=== PATIENT | male | born 1945 | race Caucasian/White ===

== ENCOUNTER 2018-05-09 01:04 | Outpatient (CLI) | payer MEDICARE, SELFPAY ==
[2018-05-09 11:14] LABS: HCT 48.4 % (40.0-50.0); HGB 15.8 g/dL (13.5-17.5); Mean Corp. HGB Concentration 32.6 g/dL (32.0-36.0); Mean Corpuscular Hemoglobin 27.3 pg (27.0-33.0); Mean Corpuscular Volume 83.6 fL (80-95); Mean Platelet Volume 13.1 fL (8.0-11.0); Platelet Count 130 x1000/uL (130-400); RBC 5.79 m/cumm (4.50-6.00); RBC Distribution Width 17.1 % (11.8-14.1); White Blood Cell Count 7.98 k/cumm (4.4-10.8)
[2018-05-09 12:07] LABS: Ferritin 22 ng/mL (8-388)
== END 2018-05-09 01:24 ==
PROVIDERS: PCP Family Medicine; Visit Provider Family Medicine
DX: D45 Polycythemia vera (principal)
CPT/HCPCS: 36415; 85027; 82728

== ENCOUNTER 2019-05-16 11:57 | Emergency (ER) | payer MEDICARE, SELFPAY ==
[2019-05-16 12:01] VITALS: BP 168/129; PULSE 76; RESP 16; TEMP 36.6; O2SAT 99
--- NOTE | 2019-05-16 12:17 | DI.US_ITS ---
EXAM: US LOWER EXTREMITY VENOUS LT CLINICAL HISTORY: L leg pain,swelling, r/o dvt. TECHNIQUE: Left lower extremity venous ultrasound performed using grayscale, color-flow, and spectra l Doppler analysis. COMPARISON: There are no priors for comparison. FINDINGS: The left common femoral, femoral and popliteal veins demonstrate normal compressibility, augmentation , and color Doppler. The posterior tibial vein is patent. The soft tissues are unremarkable. IMPRESSION: Negative for DVT.
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
[2019-05-16] MEDS: Ketorolac 60 MG/2 ML VIAL IM (12:28)
[2019-05-16] MEDS: predniSONE 20 MG TAB 60 MG PO (12:28)
--- NOTE | 2019-05-16 13:19 | NUR.NOTE ---
pt asissted with getting dressed pt states improvment in pain Nursing Note:
[2019-05-16 13:20] VITALS: BP 154/92; PULSE 76; RESP 16; TEMP 36.5; O2SAT 99
[2019-05-16] MEDS: oxyCODONE 5 MG TAB 15 MG PO (13:25)
== END 2019-05-16 13:27 | disposition home or self-care (01) ==
PROVIDERS: Emergency Provider Physician Assistant; PCP Family Medicine
DX: M54.32 Sciatica, left side (principal); G83.9 Paralytic syndrome, unspecified
CPT/HCPCS: 96372; 99284; 93971; J1885; J7512

== ENCOUNTER 2020-03-25 02:25 | Outpatient (CLI) | payer MEDICARE, SELFPAY ==
[2020-03-25 13:07] LABS: HCT 43.5 % (40.0-50.0); HGB 13.5 g/dL (13.5-17.5); MCH 24.5 pg (27.0-33.0); MCV 79.1 fL (80-95); RDW 16.3 % (11.8-14.1); RDW-SD 46.5 fL; WBC 7.95 10^3/uL (4.4-10.8)
[2020-03-25 13:31] LABS: Platelet Count 128 10^3/uL (130-400)
[2020-03-25 14:05] LABS: ALT 39 U/L (16-63); AST 39 U/L (15-37); Albumin 3.4 g/dL (3.4-5.0); Alkaline Phosphatase 100 U/L (46-116); Anion Gap 11.3 mmol/L (3-11); BUN 20 mg/dL (7-18); Bilirubin, Total 0.7 mg/dL (0.2-1.0); CO2 23.7 mmol/L (21.0-32.0); CREATININE 1.02 mg/dL (0.70-1.30); Calcium 8.7 mg/dL (8.5-10.1); Calculated LDL 98 mg/dL (<100); Chloride 105 mmol/L (98-107); Cholesterol 149 mg/dL (<200); Glucose 116 mg/dL (74-106); HDL Cholesterol 36 mg/dL (40-60); Potassium 4.4 mmol/L (3.5-5.1); Sodium 140 mmol/L (136-145); Total Protein 7.3 g/dL (6.4-8.2); Triglyceride 79 mg/dL (<150)
[2020-03-25 22:11] LABS: PSA, Diagnostic 0.8 ng/mL (0.0-6.5)
== END 2020-03-25 02:45 ==
PROVIDERS: PCP Nurse Practitioner; Visit Provider Family Medicine
DX: D64.9 Anemia, unspecified (principal); E03.9 Hypothyroidism, unspecified; C61 Malignant neoplasm of prostate
CPT/HCPCS: 36415; 80053; 80061; 85027; 84153

== ENCOUNTER 2021-02-18 04:18 | Outpatient (CLI) | payer MEDICARE, SELFPAY ==
[2021-02-18 13:14] LABS: HCT 46.7 % (40.0-50.0); HGB 14.7 g/dL (13.5-17.5); MCH 25.6 pg (27.0-33.0); MCHC 31.5 % (32.0-36.0); MCV 81.4 fL (80-95); Platelet Count 126 10^3/uL (130-400); RBC 5.74 10^6/uL (4.36-5.78); RDW 17.4 % (11.8-14.1); RDW-SD 50.2 fL; WBC 6.31 10^3/uL (4.4-10.8)
[2021-02-18 13:37] LABS: Hemoglobin A1C 5.7 % (<5.7)
[2021-02-18 14:32] LABS: TSH 0.13 uIU/mL (0.36-3.74)
== END 2021-02-18 04:19 | disposition home or self-care (01) ==
LOC: LBO 04:18
PROVIDERS: PCP Nurse Practitioner; Visit Provider Nurse Practitioner
DX: R73.09 Other abnormal glucose (principal); F32.9 Major depressive disorder, single episode, unspecified; S06.9X5D Unspecified intracranial injury with loss of consciousness greater than 24 hours with return to pre-existing conscious level, subsequent encounter
CPT/HCPCS: 36415; 85027; 83036; 84443

== ENCOUNTER 2021-12-09 06:01 | Outpatient (CLI) | payer OTHER, SELFPAY | END 2021-12-09 06:02 | disposition home or self-care (01) | LOC: LBO 06:01 | PROVIDERS: PCP Nurse Practitioner; Visit Provider Nurse Practitioner ==

== ENCOUNTER 2022-01-19 03:30 | Outpatient (CLI) | payer OTHER, SELFPAY | END 2022-01-19 03:31 | disposition home or self-care (01) | PROVIDERS: PCP Nurse Practitioner; Visit Provider Nurse Practitioner ==

== ENCOUNTER 2022-01-26 13:25 | Outpatient (CLI) | payer OTHER, SELFPAY ==
[2022-01-26 12:07] LABS: HCT 42.8 % (40.0-50.0); HGB 13.5 g/dL (13.5-17.5); MCH 26.1 pg (27.0-33.0); MCHC 31.5 % (32.0-36.0); MCV 83 fL (80-95); MPV 12.5 fL (8.0-11.0); Platelet Count 125 10^3/uL (130-400); RBC 5.17 10^6/uL (4.36-5.78); RDW 16.3 % (11.8-14.1); RDW-SD 48.8 fL; WBC 5.99 10^3/uL (4.4-10.8)
[2022-01-26 13:03] LABS: TSH 0.24 uIU/mL (0.36-3.74)
== END 2022-01-26 13:26 | disposition home or self-care (01) ==
LOC: LBO 13:25
PROVIDERS: PCP Nurse Practitioner; Visit Provider Urology
DX: C61 Malignant neoplasm of prostate (principal); E03.9 Hypothyroidism, unspecified; D45 Polycythemia vera
CPT/HCPCS: 36415; 85027; 84153; 84443

== ENCOUNTER 2022-02-23 03:33 | Outpatient (CLI) | payer OTHER, SELFPAY ==
[2022-02-23 11:16] LABS: HCT 40.9 % (40.0-50.0); HGB 12.8 g/dL (13.5-17.5); MCH 25.9 pg (27.0-33.0); MCHC 31.3 % (32.0-36.0); MCV 83 fL (80-95); MPV 12.8 fL (8.0-11.0); Platelet Count 129 10^3/uL (130-400); RBC 4.95 10^6/uL (4.36-5.78); RDW 16.1 % (11.8-14.1); RDW-SD 48.3 fL; WBC 5.51 10^3/uL (4.4-10.8)
[2022-02-23 11:49] LABS: Hemoglobin A1C 5.6 % (<5.7)
== END 2022-02-23 03:34 | disposition home or self-care (01) ==
LOC: LBO 03:33
PROVIDERS: PCP Nurse Practitioner; Visit Provider Nurse Practitioner
DX: D45 Polycythemia vera (principal); R73.03 Prediabetes
CPT/HCPCS: 36415; 85027; 83036

== ENCOUNTER 2023-02-19 12:42 | Outpatient (CLI) | payer MEDICARE, SELFPAY ==
[2023-02-19 10:31] LABS: HCT 46.3 % (40.0-50.0); HGB 15.3 g/dL (13.5-17.5); MCH 29.4 pg (27.0-33.0); MCV 89 fL (80-95); MPV 12.2 fL (8.0-11.0); RBC 5.21 10^6/uL (4.36-5.78); RDW 15.1 % (11.8-14.1); RDW-SD 49.7 fL; WBC 5.44 10^3/uL (4.4-10.8)
[2023-02-19 10:42] LABS: Hemoglobin A1C 5.4 % (<5.7)
[2023-02-19 10:45] LABS: Platelet Count 96 10^3/uL (130-400)
[2023-02-19 11:03] LABS: Anion Gap 9.4 mmol/L (3-11); BUN 26 mg/dL (7-18); CO2 25.6 mmol/L (21.0-32.0); CREATININE 1.4 mg/dL (0.70-1.30); Calcium 8.8 mg/dL (8.5-10.1); Calculated LDL 147 mg/dL (<100); Chloride 103 mmol/L (98-107); Cholesterol 222 mg/dL (<200); Estimated GFR 51.77 (mL/min/1.73m2); Glucose 103 mg/dL (74-106); HDL Cholesterol 52 mg/dL (40-60); Potassium 4.1 mmol/L (3.5-5.1); Sodium 138 mmol/L (136-145); Triglyceride 116 mg/dL (<150)
[2023-02-19 11:27] LABS: TSH (W/Ref FT4) 79.63 uIU/mL (0.36-3.74)
[2023-02-19 11:28] LABS: FREE T4 0.11 ng/dL (0.76-1.46)
== END 2023-02-19 12:43 | disposition home or self-care (01) ==
LOC: LBO 12:42
PROVIDERS: PCP Nurse Practitioner Family; Visit Provider Nurse Practitioner Family
DX: E03.9 Hypothyroidism, unspecified (principal); D45 Polycythemia vera; R79.89 Other specified abnormal findings of blood chemistry; R73.09 Other abnormal glucose; F32.89 Other specified depressive episodes; K21.9 Gastro-esophageal reflux disease without esophagitis; G83.89 Other specified paralytic syndromes; G47.8 Other sleep disorders; Z85.46 Personal history of malignant neoplasm of prostate
CPT/HCPCS: 36415; 80048; 80061; 85027; 83036; 84439; 84443

== ENCOUNTER 2023-03-17 08:49 | Inpatient (IN) | payer MEDICARE, SELFPAY ==
[2023-03-17] VITALS (28 sets, daily range): BP systolic 109–152; BP diastolic 61–79; PULSE 63–92; RESP 18–20; TEMP 36.8–37.5; O2SAT 91–96
--- OUTSIDE RECORDS SUMMARY | 2023-03-17 08:58 | XMS_ITS | Continuity of Care Document ---
Author Name Unknown Organization [facility] Address [address] [place], [place] [id number] Care Team Providers [place] [employer] Name Role Phone Yfn SIGALA, Elena Primary Care Physician Encounter German LUCAS [id number] Date(s): 12/28/22 - 12/28/22 [facility] [address] [phone] [place] [address] Discharge Disposition: Home or Self Care Attending Physician: Elena Coulter NP Referring Physician: Elena Cuolter NP Allergies, Adverse Reactions, Alerts Substance Reaction Severity Status Fish Active Assessment and Plan Future Appointments Appointment Date:01/27/2023 02:00:00 PM Scheduled Provider:Elena Coulter NP Location:[facility] Appointment Type: Established Patient Medications acetaminophen-HYDROcodone 325 mg-10 mg oral tablet 1 tab, ORAL, Q4H, PRN PRN for pain, # 7 tab, 0 Refill(s) Start Date: 12/20/14 Status: Ordered acetaminophen-HYDROcodone 325 mg-5 mg 1 tab, ORAL, Q6H, PRN PRN as needed for pain, # 12 tab, 0 Refill(s) Start Date: 12/19/14 Status: Ordered losartan 50 mg oral tablet 50 mg = 1 tab, ORAL, QDay, # 90 tab, 0 Refill(s), [facility]acy: [facility], 165.1, 09/10/22 14:21:00 EST, Height/Length Measured, cm, 80.91 Start Date: 09/10/22 Status: Ordered meclizine 12.5 mg oral tablet 12.5 mg = 1 tab, ORAL, BID, PRN PRN for dizziness, # 30 tab, 0 Refill(s), Pharmacy: [facility], 165.1, 10/20/22 13:40:00 EST, Height/Length Measured, cm, 81.36 Start Date: 10/20/22 Stop Date: 10/20/23 Status: Ordered Mobic 15 mg oral tablet 15 mg = 1 tab, ORAL, QDay, # 14 tab, 0 Refill(s), 81.8 Start Date: 11/30/22 Stop Date: 12/14/22 Status: Ordered Neurontin 300 mg oral capsule 300 mg = 1 cap, ORAL, TID, start with one on day one, then bid day two, then tid dosing, # 90 cap, 1 Refill(s), 81.8 Start Date: 11/30/22 Status: Ordered omeprazole 40 mg oral delayed release capsule 40 mg = 1 cap, ORAL, QDay, # 30 cap, 0 Refill(s) Start Date: 12/19/14 Status: Ordered oxybutynin 15 mg/24 hr oral tablet, extended release 15 mg = 1 tab, ORAL, QDay, # 30 tab, 0 Refill(s) Start Date: 12/19/14 Status: Ordered Problem List Condition Confirmation Course Effective Dates Status Health [facility] Informant BPH (benign prostatic hyperplasia) Confirmed Active Acid reflux Confirmed Active Hypothyroid Confirmed Active Prostate cancer Confirmed Active Migraines Confirmed Active Polycythemia vera Confirmed Active Hemiparesis, right Confirmed 1948 Active Procedures Procedure Date Related Diagnosis Body Site Status Prostate specific antigen Completed Results Radiology Reports * Exam Date Time Procedure Performing Provider Status 12/28/22 5:01 PM US Head/Neck, Soft Tissue Mary Min RDMS; Modified Notes: (US Head/Neck, Soft Tissue) Reason For Exam: Abnormal thyroid levels Read Procedure: US Head/Neck, Soft Tissue Indication: Abnormal thyroid levels Comparison: No prior films available for comparison. Technique: Ultrasound examination of the thyroid gland was performed utilizing multiple lauren-scale and color flow images. Findings The thyroid gland is somewhat small in size without nodules. The right lobe measures 3.8 x 1.4 x 0.8 cm. The left lobe measures 3.4 x 1.3 x 1 cm. the isthmus measures 1 mm. IMPRESSION: The thyroid gland is somewhat small in size without nodules. Dictated: 12.28.2022 5:04 pm Dictated By: Susie Garcia DO Electronic Signature: 12.28.2022 5:04 pm Final Report Signed By: Susie Garcia DO Social History Social History Type Response Smoking Status Former smoker; Info source: Patient entered on: 11/30/22 Sex Male US Head and neck soft tissue * Susie Garcia DO: PERFORM, VERIFY, VERIFY Event Display: Read Authored Date: [id number] Procedure: US Head/Neck, Soft Tissue Indication: Abnormal thyroid levels Comparison: No prior films available for comparison. Technique: Ultrasound examination of the thyroid gland was performed utilizing multiple lauren-scale and color flow images. Findings The thyroid gland is somewhat small in size without nodules. The right lobe measures 3.8 x 1.4 x 0.8 cm. The left lobe measures 3.4 x 1.3 x 1 cm. the isthmus measures 1 mm. IMPRESSION: The thyroid gland is somewhat small in size without nodules. Dictated: 12.28.2022 5:04 pm Dictated By: Susie Garcia DO Electronic Signature: 12.28.2022 5:04 pm Final Report Signed By: Susie Garcia DO Patient Care team information Personnel Name: Elena Coulter NP Address: Address: [facility] - [address], [address]
--- NOTE | 2023-03-17 10:30 | DI.RAD_ITS ---
Exam(s) XR HIP RT COMPLETE AP PELVIS EXAM: XR HIP RT COMPLETE AP PELVIS CLINICAL HISTORY: deformity. TECHNIQUE: 2D digital imaging was performed. COMPARISON: No exams were available for comparison FINDINGS: 3 views There is a subcapital fracture of the right hip with moderate displacement. No other fractures ident ified. No obvious osseous lesions.. IMPRESSION: Right femoral neck fracture with some displacement DATA REPOSITORY: RADIATION DOSE DELIVERED:
--- NOTE | 2023-03-17 10:30 | DI.RAD_ITS ---
Exam(s) XR CHEST 1V IN DI DEPT EXAM: XR CHEST 1V IN DI DEPT CLINICAL HISTORY: fall, injury. TECHNIQUE: 2D digital imaging was performed. COMPARISON: CR CHEST 2 VIEWS PA,LAT from 04/13/2013 FINDINGS: Single AP portable view. Heart size is upper normal. The mediastinum is not widened. Left lung is clear. However, there is right parahilar infiltrate evident. No pleural effusions. No pulmonary edema. IMPRESSION: Right upper lobe parahilar infiltrate. Close follow-up to resolution recommended. No obvious pleural effusions. DATA REPOSITORY: RADIATION DOSE DELIVERED:
[2023-03-17] MEDS: oxyCODONE 5 MG TAB PO (10:43)
[2023-03-17 10:56] LABS: Abs Immature Grans 0.06 10^3/uL (0.0-0.06); Absolute Basophil Count 0.04 10^3/uL (0.0-0.2); Absolute Eosinophil Count 0.12 10^3/uL (0.0-0.7); Absolute Lymphocyte Count 1.14 10^3/uL (1.2-3.4); Absolute Monocyte Count 0.93 10^3/uL (0.1-0.8); Absolute Neutrophil Count 7.36 10^3/uL (1.2-6.7); Basophils % 0.4; Eosinophils % 1.2; HGB 14.8 g/dL (13.5-17.5); Immature Grans % 0.6; Lymphocytes % 11.8; MCH 30.3 pg (27.0-33.0); MCHC 33.6 % (32.0-36.0); MCV 90 fL (80-95); Monocytes % 9.6; Neutrophils % 76.4; RBC 4.89 10^6/uL (4.36-5.78); RDW-SD 53.1 fL; WBC 9.65 10^3/uL (4.4-10.8)
--- NOTE | 2023-03-17 11:00 | DI.RAD_ITS ---
Exam(s) XR FEMUR RT EXAM: XR FEMUR RT CLINICAL HISTORY: hip fra. TECHNIQUE: 2D digital imaging was performed. COMPARISON: No exams were available for comparison FINDINGS: Five views. There is moderately displaced subcapital fracture of the right femoral neck. There are no other frac tures lower down in the femur. No osseous lesions. Bone density is age-appropriate. IMPRESSION: Right femur fracture is confined to the femoral neck. DATA REPOSITORY: RADIATION DOSE DELIVERED:
[2023-03-17 11:09] LABS: ALT 58 U/L (16-63); AST 59 U/L (15-37); Albumin 3.2 g/dL (3.4-5.0); Alkaline Phosphatase 154 U/L (46-116); Anion Gap 8.9 mmol/L (3-11); BUN 25 mg/dL (7-18); Bilirubin, Total 1.6 mg/dL (0.2-1.0); CO2 26.1 mmol/L (21.0-32.0); CREATININE 1.3 mg/dL (0.70-1.30); Calcium 8.6 mg/dL (8.5-10.1); Chloride 103 mmol/L (98-107); Estimated GFR 56.58 (mL/min/1.73m2); Glucose 113 mg/dL (74-106); Potassium 3.8 mmol/L (3.5-5.1); Sodium 138 mmol/L (136-145)
[2023-03-17 11:17] LABS: Diff Comment PLT Morph Reviewed; RBC Morphology Normal
[2023-03-17 11:19] LABS: Platelet Count 101 10^3/uL (130-400)
[2023-03-17 12:15] LABS: Source Nasal/Nares
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
[2023-03-17 12:56] LABS: COVID-19 PCR Negative (Negative)
[2023-03-17] MEDS: fentaNYL 100 MCG/2 ML VIAL 50 MCG IVP (14:00)
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
[2023-03-17 21:25] LABS: Lab Add On Test DONE
[2023-03-17 21:58] LABS: TSH 52.49 uIU/mL (0.36-3.74)
[2023-03-17] MEDS: Ketorolac 15 MG/ML VIAL IVP (23:28)
[2023-03-18] VITALS (15 sets, daily range): BP systolic 94–150; BP diastolic 49–87; PULSE 65–81; RESP 14–22; TEMP 35.6–37.2; O2SAT 94–97; BMI 29.9
[2023-03-18 03:32] LABS: Bilirubin Small (Negative); Blood Moderate (Negative); Glucose Negative (Negative); Ketones Trace mg/dL (Negative); Leukocyte Esterase Negative (Negative); Nitrite Negative (Negative); Specific Gravity 1.025 (1.005-1.025); pH 5.5 (5-8)
[2023-03-18 04:12] LABS: Clarity Sl Cloudy (Clear)
[2023-03-18 04:21] LABS: Epithelial Cells Negative HPF (Negative); Other Cells Negative (Negative); WBC 0-2 HPF (0-5)
[2023-03-18 04:22] LABS: Bacteria Rare HPF (Negative); C & S Indicated? No; Crystals Negative HPF (Negative); Mucus Trace (Negative)
[2023-03-18] MEDS: Levothyroxine 100 MCG TAB PO (05:14)
[2023-03-18 06:48] LABS: Abs Immature Grans 0.04 10^3/uL (0.0-0.06); Absolute Basophil Count 0.06 10^3/uL (0.0-0.2); Absolute Eosinophil Count 0.42 10^3/uL (0.0-0.7); Absolute Lymphocyte Count 1.73 10^3/uL (1.2-3.4); Absolute Monocyte Count 0.98 10^3/uL (0.1-0.8); Absolute Neutrophil Count 6.03 10^3/uL (1.2-6.7); Basophils % 0.6; Eosinophils % 4.5; HCT 41.9 % (40.0-50.0); HGB 14.2 g/dL (13.5-17.5); Immature Grans % 0.4; Lymphocytes % 18.7; MCH 30.5 pg (27.0-33.0); MCHC 33.9 % (32.0-36.0); MCV 90 fL (80-95); Monocytes % 10.6; Neutrophils % 65.2; RBC 4.65 10^6/uL (4.36-5.78); RDW 16.3 % (11.8-14.1); RDW-SD 54.2 fL; WBC 9.26 10^3/uL (4.4-10.8)
[2023-03-18 07:16] LABS: INR 1.1 (0.9-1.1); Prothrombin Time 11.6 sec (9.3-11.0)
[2023-03-18 07:27] LABS: ALT 49 U/L (16-63); AST 54 U/L (15-37); Albumin 2.9 g/dL (3.4-5.0); Alkaline Phosphatase 140 U/L (46-116); Anion Gap 8.8 mmol/L (3-11); BUN 25 mg/dL (7-18); Bilirubin, Total 1.6 mg/dL (0.2-1.0); CO2 25.2 mmol/L (21.0-32.0); CREATININE 1.2 mg/dL (0.70-1.30); Calcium 8.5 mg/dL (8.5-10.1); Chloride 102 mmol/L (98-107); Estimated GFR 62.29 (mL/min/1.73m2); Glucose 117 mg/dL (74-106); Magnesium 1.9 mg/dL (1.8-2.4); Sodium 136 mmol/L (136-145); Total Protein 7.5 g/dL (6.4-8.2)
[2023-03-18 07:30] LABS: Diff Comment Diff Reviewed; Platelet Count 91 10^3/uL (130-400); RBC Morphology Normal
[2023-03-18] MEDS: Cholecalciferol (Vitamin D3) 1,000 UNIT TAB 4000 UNITS PO (08:03)
[2023-03-18] MEDS: Gabapentin 300 MG CAP PO ×2 (08:04→20:49)
[2023-03-18] MEDS: Sertraline 50 MG TAB PO (08:05)
[2023-03-18] MEDS: Oxybutynin-CR 5 MG TABCR 10 MG PO (08:05)
[2023-03-18] MEDS: Losartan 50 MG TAB PO (08:05)
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
--- NOTE | 2023-03-18 08:52 | ANES.PREOP_ITS ---
General Info Date of Service Date Performed: 03/18/23 Height: 5 ft 5 in Weight: 81.6 kg Body Mass Index (BMI): 29.9 Surgical Procedure: Operation Date: 03/18/23 17:25 Proposed Procedure Side Surgeon p Hip Uni/Bipolar Right Presley Santacruz MD Meds Allergies and Home Medications Allergies Allergy/AdvReac Type Severity Reaction Status Date / Time No Known Allergies Allergy Verified 03/17/23 08:55 Home Medication Medication Instructions Recorded acetaminophen 500 mg tablet 1,000 mg PO Q6H PRN #60 tab-caps 04/07/17 ketoconazole 2 % topical cream 1 applic topical BID #30 grams 04/25/19 loratadine 10 mg tablet 15 mg PO DAILY #135 tab-caps 02/12/22 sertraline 50 mg tablet 50 mg PO DAILY #90 tab-caps 05/22/22 acetaminophen 300 mg-codeine 30 mg 1 tab PO Q4H PRN 02/18/23 tablet gabapentin 300 mg capsule 300 mg PO TID #90 caps 02/18/23 losartan 50 mg tablet 50 mg PO DAILY 02/18/23 meclizine 12.5 mg tablet 12.5 mg PO TID PRN 02/18/23 omeprazole 40 mg capsule,delayed 40 mg PO BID #180 caps 02/18/23 release oxybutynin chloride 10 mg 10 mg PO DAILY #90 tab-caps 02/18/23 tablet,extended release 24 hr tadalafil 20 mg tablet (Cialis) 20 mg PO DAILY PRN sexual activity 02/18/23 #30 tabs cholecalciferol (vitamin D3) 50 100 mcg PO DAILY 03/04/23 mcg (2,000 unit) capsule levothyroxine 100 mcg tablet 100 mcg PO DAILY #90 tabs 03/04/23 loratadine 10 mg tablet (Allergy 10 mg PO DAILY PRN 03/04/23 Relief (loratadine)) Current Visit Medications: Current Medications Generic Name Dose Route Start Last Admin Trade Name Freq PRN Reason Stop Dose Admin Acetaminophen 0 mg 03/17/23 12:41 Acetaminophen 325 Mg Tab PO Q4H PRN PRN Cholecalciferol 4,000 units 03/18/23 08:30 03/18/23 08:03 Cholecalciferol (Vitamin D3) 1,000 Unit Tab PO 4,000 units DAILY SHON Administration Gabapentin 300 mg 03/18/23 08:30 03/18/23 08:04 Gabapentin 300 Mg Cap PO 300 mg TID SHON Administration Hydromorphone HCl 0.5 mg 03/17/23 20:15 Hydromorphone 2 Mg/Ml Syr IVP Q4H PRN PRN Ringer's Solution 1,000 mls @ 75 mls/hr 03/18/23 08:00 IV 03/18/23 21:19 INFUSION [facility] Ketorolac Tromethamine 15 mg 03/17/23 20:19 03/17/23 23:28 Ketorolac 15 Mg/Ml Vial IVP 03/22/23 20:18 15 mg Q6H PRN PRN Administration Levothyroxine Sodium 100 mcg 03/18/23 06:00 03/18/23 05:14 Levothyroxine 100 Mcg Tab PO 100 mcg 0600 [facility] Administration Loratadine 10 mg 03/17/23 20:16 Loratidine 10 Mg Tab PO DAILY PRN PRN Losartan Potassium 50 mg 03/18/23 08:30 03/18/23 08:05 Losartan 50 Mg Tab PO 50 mg DAILY [facility] Administration Ondansetron HCl 4 mg 03/17/23 20:15 Ondansetron 4 Mg/2 Ml Vial IVP Q4H PRN PRN Oxybutynin Chloride 10 mg 03/18/23 08:30 03/18/23 08:05 Oxybutynin-Cr 5 Mg Tabcr PO 10 mg DAILY [facility] Administration Polyethylene Glycol 17 gm 03/17/23 12:41 Polyethylene Glycol 3350 17 Gm Packet PO DAILY PRN PRN Constipation Sertraline HCl 50 mg 03/18/23 08:30 03/18/23 08:05 Sertraline 50 Mg Tab PO 50 mg DAILY [facility] Administration Zolpidem Tartrate 5 mg 03/17/23 21:36 Zolpidem 5 Mg Tab PO HS PRN MAY REPEAT X1 PRN PFSH Active Problems Active Problems: Problem Status Onset Code Discharge planning issues Z02.9 DVT prophylaxis Z29.9 Displaced fracture of right femoral neck 03/17/23 S72.001A Prediabetes R73.03 Sensorineural hearing loss, bilateral H90.3 Traumatic brain injury S06.9X9A Depressive disorder F32.9 Hypothyroidism E03.9 Gastroesophageal reflux disease K21.9 Polycythemia vera 04/13/13 D45 Prostate cancer 06/16/14 C61 Sleep disturbance, unspecified G47.9 Hearing loss H91.90 Paralysis G83.9 Medical History Medical History Anxiety (02/25/15) Chronic osteoarthritis (05/29/13) Family history of malignant neoplasm of prostate (01/23/13) Hepatomegaly History of prostate cancer Impotence (01/23/15) Left lumbar radiculopathy intermittent Migraine History of migraine headaches, Paresthesias of left thigh (04/13/13) Prostatitis (04/13/13) Smoker (01/24/09) quit 1989 Surgical History Surgical History No significant past surgical history Tobacco Smoking/Tobacco Use Status: Former Tobacco Use Alcohol Alcohol Intake: current Alcohol intake frequency: a few times a month Substance Use Substance use: Never Substance use type: does not use Vital Signs and Lab Results Vital Signs Most Recent Vital Signs in EMR: Most Recent Vital Signs Temp Pulse Resp BP Pulse Ox 37.0 C 80 18 147/87 H 97 03/18/23 07:25 03/18/23 07:25 03/18/23 07:25 03/18/23 07:25 03/18/23 07:25 Lab Results 03/18/23 06:10 03/18/23 06:10 Blood Type / Crossmatch: Patient ABO/Rh O Positive 03/17/23 Antibody Screen NEGATIVE 03/17/23 Complete Blood Count: White Blood Count 9.26 10^3/uL (4.4-10.8) 03/18/23 06:10 Red Blood Count 4.65 10^6/uL (4.36-5.78) 03/18/23 06:10 Hemoglobin 14.2 g/dL (13.5-17.5) 03/18/23 06:10 Hematocrit 41.9 % (40.0-50.0) 03/18/23 06:10 Platelet Count 91 10^3/uL (130-400) L 03/18/23 06:10 Complete Metabolic Panel: Sodium 136 mmol/L (136-145) 03/18/23 06:10 Potassium 4.0 mmol/L (3.5-5.1) 03/18/23 06:10 Chloride 102 mmol/L (98-107) 03/18/23 06:10 Carbon Dioxide 25.2 mmol/L (21.0-32.0) 03/18/23 06:10 BUN 25 mg/dL (7-18) H 03/18/23 06:10 Creatinine 1.2 mg/dL (0.70-1.30) 03/18/23 06:10 Est GFR (CKD-EPI 2020) 62.29 (mL/min/1.73m2) 03/18/23 06:10 Magnesium 1.9 mg/dL (1.8-2.4) 03/18/23 06:10 Calcium 8.5 mg/dL (8.5-10.1) 03/18/23 06:10 Albumin 2.9 g/dL (3.4-5.0) L 03/18/23 06:10 Glucose 117 mg/dL (74-106) H 03/18/23 06:10 Hemoglobin A1c 5.4 % (<5.7) 02/19/23 10:20 Liver Function Panel: Alanine Aminotransferase (ALT/SGPT) 49 U/L (16-63) 03/18/23 06: 10 Aspartate Amino Transf (AST/SGOT) 54 U/L (15-37) H 03/18/23 06: 10 Coagulation Panel: INR International Normalized Ratio 1.1 (0.9-1.1) 03/18/23 06:1 0 Prothrombin Time 11.6 sec (9.3-11.0) H 03/18/23 06:10 Cardiac Panel: No Data to Display Arterial Blood Gas: No Data to Display Venous Blood Gas: No Data to Display Pancreas Panel: No Data to Display Thyroid Panel: 2 Thyroid Stimulating Hormone (TSH) 52.49 uIU/mL (0.36-3.74) H 03/17/23 10:44 Infectious Disease: Coronavirus (COVID-19)(PCR) Negative (Negative) 03/17/23 12:11 Coronavirus 2019 Source Nasal/Nares 03/17/23 12:11 Blood Cultures: No Data to Display Toxicology Panel: No Data to Display Anesthesia Assessment and Plan Anesthesia History Personal History: No History of Anesthesia Complications Family History: No Family History of Anesthesia Complications Exercise Tolerance Exercise Tolerance: Metabolic Equivalents>4 Pertinent Negatives Pertinent Negatives: No Symptoms of GERD, No Major Cardiovascular Symptoms or Complaints and No Major Pulmonary Symptoms or Complaints Cardiac & Pulmonary Exam Cardiac Exam: Normal S1/S2 Heart Sounds Pulmonary Exam: Clear Bilateral Breath Sounds Implantable Cardiac Device Does patient have a Pacemaker or an ICD?: No Airway Exam Known Difficult Airway: No Mallampati Class: 1 Mouth Opening: Normal (> 3cm) Thyromental Distance: Greater than 3 cm Facial Hair: Full Joyner Neck Range of Motion: Full ROM Neck Circumference: Normal Teeth Condition: Edentulous ASA Classification ASA Score: ASA 3 Emergency Case?: No NPO Status NPO Status: NPO Clears >2 hours, Solids >8 hours Anesthesia Plan Resuscitation Status: Full Code Anesthesia Technique: General Anesthesia Airway Planned: Endotracheal Tube Monitors Used: Standard Monitors Preoperative Comments:: TSH levels are coming down since started on replacement therapy, and platelet count trended and stable. Reviewed case with hospitalist.
[2023-03-18] MEDS: Lactated Ringers 1,000 ML 75 ML IV ×2 (09:46→17:59)
--- NOTE | 2023-03-18 13:46 | CHAPLAIN ---
Steve was resting in bed when I visited. His son was with him. They are waiting to hear if Steve will have surgery on his hip today or not. He hasn't eaten while waiting for surgery, so he hopes to learn soon about his surgery schedule, so he can possible eat if the surgery isn't until tomorrow. I explained my role and offered support.
[2023-03-18] MEDS: HYDROmorphone 2 MG/ML SYR 0.5 MG IVP (15:49)
--- NOTE | 2023-03-18 16:29 | W.PM.OP ---
Date of service: 03/18/23 Time of Service: 16:29 Operative Note Operative Note DATE OF PROCEDURE: 03/18/23 PRE-OP DIAGNOSIS: Right displaced femoral neck fracture PROCEDURE: Right posterior hip hemiarthroplasty SURGEON: Presley Santacruz [employer] ARCHITECT: Charlee Quinonez ANESTHESIA TYPE: Local By Surgeon and General LMA/ETT Refer to Anesthesia Record ESTIMATED BLOOD LOSS: 75 COMPLICATIONS: None Patient was transported to: PACU Patient's condition: stable Implants: DePuy Corail press fit femoral stem size 10 standard with 46 mm bipolar head +12 mm length Procedure Description: In the operating room, general anesthesia was induced. The patient was transferred and positioned laterally on the operating room table. All bony prominences were well-padded. Preoperative antibiotics were administered as well as 1 g of TXA. The right hip was prepped and draped in the usual sterile fashion. The correct patient, procedure, and side of the procedure were all verified prior to incision. The posterior lateral approach to left hip was utilized. 30 cc of 0.5% bupivacaine containing epinephrine was infiltrated about the incision. Deeply, care was taken to protect the sciatic nerve. The short external rotators and capsule were reflected off the femoral neck and tagged for retraction and later repair. The femoral neck fracture was cut to an appropriate length and to match the desired implant. The femoral head was removed from the acetabulum and measured on the back table. All bony debris was removed from the wound. The proximal femoral canal was sequentially opened and broached with the appropriate lateralization and anteversion until there was a relatively solid fit. Trial reduction with a standard offset +1 mm length bipolar head was too loose and unstable so the trial head length was built up to +12 mm, which demonstrated good suction seal and stability throughout physiologic range of motion. The trial implants were removed. The femoral stem was then impacted to the appropriate depth. The final bipolar head was assembled and impacted onto the femoral trunnion then reduced into the acetabulum, and found to have excellent stability. The wound was copiously irrigated with Betadine and normal saline. 1 g of vancomycin powder was distributed mostly deep to the capsule with some superficial to the capsule about the wound. The short external rotators were repaired using SutureTape through bone tunnels in the greater trochanter. Distally, the IT band fascia was closed using #1 Vicryl in an interrupted fashion. Proximally, the gluteus darby muscle fascia was closed using 0 Vicryl in a running fashion. The superficial wound was irrigated with normal saline. Subcutaneous tissue was closed using 2-0 Monocryl in a buried interrupted fashion. Skin was closed using 3-0 Monocryl in a buried subcuticular buried fashion. Skin was sealed with skin glue. A silver impregnated bandage was applied over the wound. The patient awoke from anesthesia without complication and was transferred to the recovery room in a stable condition.
--- NOTE | 2023-03-18 16:30 | W.PM.PROGNOT ---
Date of Service Date of service: 03/18/23 Time of Service: 19:45 Assessment and Plan Assessment and plan (1) Displaced fracture of right femoral neck: Status: Acute Assessment and plan: 78-year-old male postop day #0 status post right hip hemiarthroplasty Complete 24 hours postoperative antibiotics Discontinue Hooks catheter postop day #1 Pain control-Multimodal Physical therapy ordered: Weightbearing as tolerated with assist device. Posterior hip precautions?avoid deep hip flexion (past 90 degrees) combined with any internal rotation and adduction for 6 weeks. May start chemical DVT prophylaxis tomorrow assuming hemodynamically stable and continue for 30 days postop Continue mechanical DVT prophylaxis with BLE SCDs and/or TIA hose Discharge when medically appropriate Follow-up with Dr. Santacruz outpatient [facility] in 2 to 3 weeks Appreciate medical management Objective Last Vital Signs Temp 99.0 F 03/18/23 15:31 Pulse 68 03/18/23 15:31 Resp 16 03/18/23 15:31 BP 138/82 03/18/23 15:31 Pulse Ox 94 03/18/23 15:31 Laboratory Results - last 24 hr 03/17/23 03/17/23 03/17/23 10:44 21:35 Unknown WBC RBC Hgb Hct MCV MCH MCHC RDW Plt Count MPV Immature Gran % Neutrophils % Lymphocytes % Monocytes % Eosinophils % Basophils % Nucleated RBC % Absolute Neutrophils Absolute Lymphocytes Absolute Monocytes Absolute Eosinophils Absolute Basophils RBC Morphology PT INR Sodium Potassium Chloride Carbon Dioxide Anion Gap BUN Creatinine Est GFR (CKD-EPI 2020) Glucose Calcium Magnesium Total Bilirubin AST ALT Alkaline Phosphatase Total Protein Albumin TSH 52.49 H Urine Color Urine Clarity Urine pH Ur Specific [place] Urine Protein Urine Ketones Urine Blood Urine Nitrite Urine Bilirubin Urine Urobilinogen Ur Leukocyte Esterase Urine RBC Urine WBC Ur Epithelial Cells Urine Crystals Urine Bacteria Urine Mucus Urine Other Ur Culture Indicated? Urine Glucose Add-On Test Request DONE Patient ABO/Rh O Positive Antibody Screen NEGATIVE 03/18/23 03/18/23 03/18/23 03:00 06:10 06:10 WBC 9.26 RBC 4.65 Hgb 14.2 Hct 41.9 MCV 90 MCH 30.5 MCHC 33.9 RDW 16.3 H Plt Count 91 L MPV 13.0 H Immature Gran % 0.4 Neutrophils % 65.2 Lymphocytes % 18.7 Monocytes % 10.6 Eosinophils % 4.5 Basophils % 0.6 Nucleated RBC % 0.0 Absolute Neutrophils 6.03 Absolute Lymphocytes 1.73 Absolute Monocytes 0.98 H Absolute Eosinophils 0.42 Absolute Basophils 0.06 RBC Morphology Normal PT INR Sodium 136 Potassium 4.0 Chloride 102 Carbon Dioxide 25.2 Anion Gap 8.8 BUN 25 H Creatinine 1.2 Est GFR (CKD-EPI 2020) 62.29 Glucose 117 H Calcium 8.5 Magnesium 1.9 Total Bilirubin 1.6 H AST 54 H ALT 49 Alkaline Phosphatase 140 H Total Protein 7.5 Albumin 2.9 L TSH Urine Color Dark Yellow Urine Clarity Sl Cloudy Urine pH 5.5 Ur Specific [place] 1.025 Urine Protein 30 H Urine Ketones Trace H Urine Blood Moderate H Urine Nitrite Negative Urine Bilirubin Small H Urine Urobilinogen 4.0 H Ur Leukocyte Esterase Negative Urine RBC 10-20 H Urine WBC 0-2 Ur Epithelial Cells Negative Urine Crystals Negative Urine Bacteria Rare Urine Mucus Trace Urine Other Negative Ur Culture Indicated? No Urine Glucose Negative Add-On Test Request Patient ABO/Rh Antibody Screen 03/18/23 06:10 WBC RBC Hgb Hct MCV MCH MCHC RDW Plt Count MPV Immature Gran % Neutrophils % Lymphocytes % Monocytes % Eosinophils % Basophils % Nucleated RBC % Absolute Neutrophils Absolute Lymphocytes Absolute Monocytes Absolute Eosinophils Absolute Basophils RBC Morphology PT 11.6 H INR 1.1 Sodium Potassium Chloride Carbon Dioxide Anion Gap BUN Creatinine Est GFR (CKD-EPI 2020) Glucose Calcium Magnesium Total Bilirubin AST ALT Alkaline Phosphatase Total Protein Albumin TSH Urine Color Urine Clarity Urine pH Ur Specific [place] Urine Protein Urine Ketones Urine Blood Urine Nitrite Urine Bilirubin Urine Urobilinogen Ur Leukocyte Esterase Urine RBC Urine WBC Ur Epithelial Cells Urine Crystals Urine Bacteria Urine Mucus Urine Other Ur Culture Indicated? Urine Glucose Add-On Test Request Patient ABO/Rh Antibody Screen Time Spent with Patient Time Spent with Patient: <25 minutes Time was spent: obtaining and/or reviewing separately [facility]
--- NOTE | 2023-03-18 16:47 | W.PM.PROGNOT ---
Date of Service Date of service: 03/18/23 Time of Service: 16:48 Assessment and Plan Assessment and plan (1) Displaced fracture of right femoral neck: Status: Acute Assessment and plan: Mechanical fall resulting in displaced right femoral neck fracture Ortho consulted - still in OR for right hip hemiarthroplasty at time of writing Reg diet postop, bedrest, multi-? modal pain control Acetaminophen, Ketorolac, hydromorphone for pain Indwelling urinary catheter (2) Hypothyroidism: Status: Active Assessment and plan: Stable, continue home med (3) Gastroesophageal reflux disease: Status: Active Assessment and plan: Stable, continue home med (4) Anxiety: Assessment and plan: Lorazepam PRN (5) DVT prophylaxis: Status: Acute Assessment and plan: Hold chemical DVT prophylaxis pending OR SCDs/TIA hoovere. (6) Discharge planning issues: Status: Acute Assessment and plan: Home v SNF Discussed with Dr Fox Subjective Subjective Patient reports: no new complaints, feels better and bowel movement; denies diarrhea, vomiting or fever Interval history since last seen: Patient NPO - to the OR this afternoon with ortho for repair of his hip Objective Last Vital Signs Temp 37.2 C 03/18/23 15:31 Pulse 68 03/18/23 15:31 Resp 16 03/18/23 15:31 BP 138/82 03/18/23 15:31 Pulse Ox 94 03/18/23 15:31 Laboratory Results - last 24 hr 03/17/23 03/17/23 03/17/23 10:44 21:35 Unknown WBC RBC Hgb Hct MCV MCH MCHC RDW Plt Count MPV Immature Gran % Neutrophils % Lymphocytes % Monocytes % Eosinophils % Basophils % Nucleated RBC % Absolute Neutrophils Absolute Lymphocytes Absolute Monocytes Absolute Eosinophils Absolute Basophils RBC Morphology PT INR Sodium Potassium Chloride Carbon Dioxide Anion Gap BUN Creatinine Est GFR (CKD-EPI 2020) Glucose Calcium Magnesium Total Bilirubin AST ALT Alkaline Phosphatase Total Protein Albumin TSH 52.49 H Urine Color Urine Clarity Urine pH Ur Specific [place] Urine Protein Urine Ketones Urine Blood Urine Nitrite Urine Bilirubin Urine Urobilinogen Ur Leukocyte Esterase Urine RBC Urine WBC Ur Epithelial Cells Urine Crystals Urine Bacteria Urine Mucus Urine Other Ur Culture Indicated? Urine Glucose Add-On Test Request DONE Patient ABO/Rh O Positive Antibody Screen NEGATIVE 03/18/23 03/18/23 03/18/23 03:00 06:10 06:10 WBC 9.26 RBC 4.65 Hgb 14.2 Hct 41.9 MCV 90 MCH 30.5 MCHC 33.9 RDW 16.3 H Plt Count 91 L MPV 13.0 H Immature Gran % 0.4 Neutrophils % 65.2 Lymphocytes % 18.7 Monocytes % 10.6 Eosinophils % 4.5 Basophils % 0.6 Nucleated RBC % 0.0 Absolute Neutrophils 6.03 Absolute Lymphocytes 1.73 Absolute Monocytes 0.98 H Absolute Eosinophils 0.42 Absolute Basophils 0.06 RBC Morphology Normal PT INR Sodium 136 Potassium 4.0 Chloride 102 Carbon Dioxide 25.2 Anion Gap 8.8 BUN 25 H Creatinine 1.2 Est GFR (CKD-EPI 2020) 62.29 Glucose 117 H Calcium 8.5 Magnesium 1.9 Total Bilirubin 1.6 H AST 54 H ALT 49 Alkaline Phosphatase 140 H Total Protein 7.5 Albumin 2.9 L TSH Urine Color Dark Yellow Urine Clarity Sl Cloudy Urine pH 5.5 Ur Specific [place] 1.025 Urine Protein 30 H Urine Ketones Trace H Urine Blood Moderate H Urine Nitrite Negative Urine Bilirubin Small H Urine Urobilinogen 4.0 H Ur Leukocyte Esterase Negative Urine RBC 10-20 H Urine WBC 0-2 Ur Epithelial Cells Negative Urine Crystals Negative Urine Bacteria Rare Urine Mucus Trace Urine Other Negative Ur Culture Indicated? No Urine Glucose Negative Add-On Test Request Patient ABO/Rh Antibody Screen 03/18/23 06:10 WBC RBC Hgb Hct MCV MCH MCHC RDW Plt Count MPV Immature Gran % Neutrophils % Lymphocytes % Monocytes % Eosinophils % Basophils % Nucleated RBC % Absolute Neutrophils Absolute Lymphocytes Absolute Monocytes Absolute Eosinophils Absolute Basophils RBC Morphology PT 11.6 H INR 1.1 Sodium Potassium Chloride Carbon Dioxide Anion Gap BUN Creatinine Est GFR (CKD-EPI 2020) Glucose Calcium Magnesium Total Bilirubin AST ALT Alkaline Phosphatase Total Protein Albumin TSH Urine Color Urine Clarity Urine pH Ur Specific [place] Urine Protein Urine Ketones Urine Blood Urine Nitrite Urine Bilirubin Urine Urobilinogen Ur Leukocyte Esterase Urine RBC Urine WBC Ur Epithelial Cells Urine Crystals Urine Bacteria Urine Mucus Urine Other Ur Culture Indicated? Urine Glucose Add-On Test Request Patient ABO/Rh Antibody Screen Time Spent with Patient Time Spent with Patient: <25 minutes Time was spent: preparing to see the patient(eg.review tests), ordering medications,tests, procedures, referring, communicating with other health career counselor, indepentently interpreting results and care coordination
--- NOTE | 2023-03-18 17:02 | NUR.NOTE ---
Nursing Note: Unable to assess patient for 15:00 shift. Pt went to OR at 1600 for fixture of femur and hip due to a fall. Report was given to pre-op staff members. Vital signs were stable before going to the OR. Patient had no complaints before going to OR. The son requested to be called once he hits PACU so that he is able to come and see him before bed. Hooks catheter was emptied prior to surgery.
[2023-03-18] MEDS: Tranexamic Acid 1,000 MG/10 ML VIAL 1000 MG (17:30)
[2023-03-18] MEDS: Bupivacaine 0.5% Pres-Free W/EPI 30 ML VIAL (17:30)
--- NOTE | 2023-03-18 19:15 | DI.RAD_ITS ---
Exam(s) XR HIP RT COMPLETE AP PELVIS EXAM: XR HIP RT COMPLETE AP PELVIS CLINICAL HISTORY: Postop femoral neck fx. TECHNIQUE: 2D digital imaging was performed. COMPARISON: CR XR FEMUR RT from 03/17/2023 FINDINGS: 3 views Satisfactory position alignment of the components of the newly placed right hip prosthesis. No fract ure or loosening evident. IMPRESSION: Satisfactory postop appearance. DATA REPOSITORY: RADIATION DOSE DELIVERED:
--- NOTE | 2023-03-18 20:17 | W.ANESPOSTOP ---
Postoperative Evaluation Date, Time and Location Date Performed: 03/18/23 Time Performed: 20:17 Patient Location: PACU Vital Signs Most Recent Imported Vital Signs: Most Recent Vital Signs Temp Pulse Resp BP Pulse Ox 36.6 C 73 21 108/50 L 94 03/18/23 20:05 03/18/23 20:05 03/18/23 20:05 03/18/23 20:05 03/18/23 20:05 Pain Score Most Recent Pain Score: Most Recent Pain Score Pain Level 7 03/18/23 15:49 Assessment Mental Status: Arousable with meaningful communication Airway and Respiratory Function: Patent airway with normal (patient baseline) respiratory exam Cardiovascular Function: Hemodynamically Stable Hydration Status: Adequately Hydrated Nausea & Vomiting: No Nausea or Vomiting Pain: Pain is tolerable per patient Peripheral Nerve Block: Patient did not receive a nerve block
--- NOTE | 2023-03-18 20:27 | NUR.NOTE ---
Pt back from pacu via bed.Received report from nurse at bedside. Pt Is resting comfortably at this time. On o2 via nc vs wnl no distress noted. right hip has surgical dressing in place and clean and dry. Nursing Note:
[2023-03-18] MEDS: Enoxaparin 40 MG/0.4 ML SYR SC (20:50)
[2023-03-19] VITALS (8 sets, daily range): BP systolic 111–147; BP diastolic 65–90; PULSE 67–90; RESP 12–18; TEMP 36.2–37.8; O2SAT 92–97
[2023-03-19] MEDS: ceFAZolin 1 GM/50 ML BAG IVPB ×3 (02:22→16:49)
[2023-03-19] MEDS: Ketorolac 15 MG/ML VIAL IVP (03:14)
[2023-03-19] MEDS: Levothyroxine 100 MCG TAB PO (05:47)
[2023-03-19] MEDS: HYDROmorphone 2 MG/ML SYR 0.5 MG IVP (05:55)
[2023-03-19 06:43] LABS: Abs Immature Grans 0.07 10^3/uL (0.0-0.06); Absolute Eosinophil Count 0.16 10^3/uL (0.0-0.7); Absolute Lymphocyte Count 1.47 10^3/uL (1.2-3.4); Absolute Neutrophil Count 8.09 10^3/uL (1.2-6.7); Basophils % 0.5; Eosinophils % 1.4; HCT 38.9 % (40.0-50.0); HGB 12.8 g/dL (13.5-17.5); Immature Grans % 0.6; Lymphocytes % 13.2; MCH 30.5 pg (27.0-33.0); MCHC 32.9 % (32.0-36.0); MCV 93 fL (80-95); Monocytes % 11.4; Neutrophils % 72.9; RDW 16.4 % (11.8-14.1); RDW-SD 55.4 fL
[2023-03-19 06:47] LABS: Absolute Basophil Count 0.06 10^3/uL (0.0-0.2); Absolute Monocyte Count 1.27 10^3/uL (0.1-0.8)
[2023-03-19 07:04] LABS: Anion Gap 8.8 mmol/L (3-11); BUN 24 mg/dL (7-18); CO2 24.2 mmol/L (21.0-32.0); CREATININE 1.2 mg/dL (0.70-1.30); Chloride 104 mmol/L (98-107); Estimated GFR 62.29 (mL/min/1.73m2); Glucose 112 mg/dL (74-106); Magnesium 1.7 mg/dL (1.8-2.4); Potassium 4.1 mmol/L (3.5-5.1); Sodium 137 mmol/L (136-145)
--- NOTE | 2023-03-19 07:22 | W.PM.PROGNOT ---
Date of Service Date of service: 03/19/23 Time of Service: 07:22 Assessment and Plan Assessment and plan (1) Displaced fracture of right femoral neck: Status: Acute Assessment and plan: 78-year-old male postop day #1 status post right hip hemiarthroplasty Patient sleeping in bed. He reports that he has not been having any hip discomfort. Denies any numbness or tingling. He reports no questions or concerns at this time. Hip exam is very limited due to right lower extremity stiffness which may be his baseline. Sensory intact throughout the right lower extremity. Difficult to assess leg lengths due to motion. Stable and tolerates although with significant stiffness passive circumduction about the hip. No signs of right hip or right lower extremity acute problem. Plan? Complete 24 hours postoperative antibiotics Discontinue Hooks catheter postop day #1 Per medical team went in's and out's are appropriate Pain control-Multimodal Physical therapy ordered: Weightbearing as tolerated with assist device. Posterior hip precautions?avoid deep hip flexion (past 90 degrees) combined with any internal rotation and adduction for 6 weeks. Will be more challenging given baseline dysfunction. May start chemical DVT prophylaxis tomorrow assuming hemodynamically stable and continue for 30 days postop. We discussed Lovenox as patient will likely be more sedentary and require rehab placement. Continue mechanical DVT prophylaxis with BLE SCDs and/or TIA hose Discharge when medically appropriate Follow-up with Dr. Santacruz outpatient [facility] in 2 to 3 weeks Appreciate medical management Exam Narrative Exam Narrative: Patient resting comfortably in bed with right lower extremity propped up on a pillow. Dressing over the lateral hip is intact. Right lower extremity grossly normally aligned. Limited motor exam both active and passive. Wiggles toes. Tolerates limited passive dorsiflexion and plantarflexion. Very stiff with attempted passive hip motion, tolerates very limited hip and knee flexion. Sensation intact to light touch. Right lower extremity is warm and well perfused. Objective Last Vital Signs Temp 97.2 F L 03/19/23 07:19 Pulse 67 03/19/23 07:19 Resp 18 03/19/23 07:19 BP 111/65 03/19/23 07:19 Pulse Ox 96 03/19/23 07:19 Laboratory Results - last 24 hr 03/18/23 03/18/23 03/19/23 06:10 06:10 06:15 WBC 9.26 RBC 4.65 Hgb 14.2 Hct 41.9 MCV 90 MCH 30.5 MCHC 33.9 RDW 16.3 H Plt Count 91 L MPV 13.0 H Immature Gran % 0.4 Neutrophils % 65.2 Lymphocytes % 18.7 Monocytes % 10.6 Eosinophils % 4.5 Basophils % 0.6 Nucleated RBC % 0.0 Absolute Neutrophils 6.03 Absolute Lymphocytes 1.73 Absolute Monocytes 0.98 H Absolute Eosinophils 0.42 Absolute Basophils 0.06 RBC Morphology Normal Sodium 136 137 Potassium 4.0 4.1 Chloride 102 104 Carbon Dioxide 25.2 24.2 Anion Gap 8.8 8.8 BUN 25 H 24 H Creatinine 1.2 1.2 Est GFR (CKD-EPI 2020) 62.29 62.29 Glucose 117 H 112 H Calcium 8.5 8.0 L Magnesium 1.9 1.7 L Total Bilirubin 1.6 H AST 54 H ALT 49 Alkaline Phosphatase 140 H Total Protein 7.5 Albumin 2.9 L Time Spent with Patient Time Spent with Patient: <25 minutes Time was spent: preparing to see the patient(eg.review tests), obtaining and/or reviewing separately otained hiistory, ordering medications,tests, procedures and counseling the patient
[2023-03-19] MEDS: Gabapentin 300 MG CAP PO ×3 (07:30→19:46)
[2023-03-19] MEDS: Oxybutynin-CR 5 MG TABCR 10 MG PO (07:30)
[2023-03-19] MEDS: Cholecalciferol (Vitamin D3) 1,000 UNIT TAB 4000 UNITS PO (07:30)
[2023-03-19] MEDS: Losartan 50 MG TAB PO (07:30)
[2023-03-19] MEDS: Sertraline 50 MG TAB PO (07:30)
[2023-03-19 07:36] LABS: Diff Comment PLT Morph Reviewed
[2023-03-19 07:38] LABS: RBC Morphology Normal
[2023-03-19 07:39] LABS: Vitamin B12 547 pg/mL (193-986)
[2023-03-19 07:40] LABS: Platelet Count 61 10^3/uL (130-400)
--- NOTE | 2023-03-19 08:10 | CMPROGNOTE_ITS ---
Date of service: 03/19/23 Time of Service: 08:11 Care Management Progress Note Progress Note Text Progress Note Text: S/O: Steve was sitting up in a chair when CM met with him. His son Jewel was visiting and was helping Steve eat lunch. Jewel informed CM that he felt that Steve would need to go to rehab. CM responded that Steve had already agreed to go to rehab and we were just waiting for the PT evaluation to send the referrals to [facility] and the [facility]. Jewel added that there would need to be different living arrangements and that he was no longer able to care for Steve at home. CM discussed the need to complete a nursing home Medicaid application so that there would be a payer source when the time came. CM provided Jewel with the LTM application. Referrals were sent and a bed offer was received from [facility] soon thereafter. He will likely transfer on Wednesday. A:Steve is a 78 year old man admitted on 03/17/23 with a fractured hip P:PT has recommended that Steve go to a SNF for short term rehab prior to returning home. He has informed CM that he would be willing to do so. Referrals were sent to [facility] and [facility]. A bed offer was received almost immediately from [facility] and they will begin the process for prior authorization. It is possible that Steve will need to transition to terminal clerk care so CM provided his son Jewel with a LTM application. Steve will follow up with the facility providers and plan of care and transport via w/c van. CM will follow and assess for ongoing discharge concerns.
--- NOTE | 2023-03-19 08:56 | W.PM.PROGNOT ---
Date of Service Date of service: 03/19/23 Time of Service: 08:56 Assessment and Plan Assessment and plan (1) Displaced fracture of right femoral neck: Status: Acute Assessment and plan: Mechanical fall resulting in displaced right femoral neck fracture Post op day 1 ?status post right hip hemiarthroplasty Reg diet postop, bedrest, multi-? modal pain control Acetaminophen, Ketorolac, hydromorphone for pain Indwelling urinary catheter discontinued - scant urine, 500 ml LR bolus given; bladder scan with straight cath if needed PT eval pending Baseline dysfxn will need SNF (2) Hypothyroidism: Status: Active Assessment and plan: Stable, continue home med (3) Gastroesophageal reflux disease: Status: Active Assessment and plan: Stable, continue home med (4) Anxiety: Assessment and plan: Lorazepam PRN (5) DVT prophylaxis: Status: Acute Assessment and plan: Hold chemical DVT prophylaxis s/t platelet count continue SCDs/TIA hose. (6) Discharge planning issues: Status: Acute Assessment and plan: Home v SNF Discussed with Dr Hackett Subjective Subjective Patient reports: no new complaints, feels better, pain is less, tolerating a regular diet, bowel movement and afebrile; denies diarrhea or vomiting Interval history since last seen: Steve is sleeping alot, when awake states he feels better, has not had PT eval yet Exam Const General: cooperative, healthy appearing and no acute distress HENMT Head: normal to inspection Face and sinus: normal facial exam Eyes General: appearance normal, both eyes and all related structures EOM: EOM intact bilaterally Neck Neck: normal visual inspection Lymphatic: no lymphadenopathy noted Chest Chest: normal inspection of the chest Resp Effort & Inspection: normal respiratory effort and able to speak in complete sentences Auscultation: clear to auscultation bilaterally Cardio Rate: regular rate Rhythm: regular rhythm GI Inspection: normal to inspection Palpation: soft Auscultation: normal bowel sounds Back/Spine/Pelvis Thoracic/Lumbar Spine: thoracic and lumbar spine normal to inspection Skin General skin exam: no rashes or lesions noted Neuro General: patient alert, patient awake and patient oriented x3 Cognition: normal cognition Speech: speech normal Motor: muscle tone normal throughout Sensory Exam: no sensory deficits noted Extrem Other: Limited rom to right lower extremity stiffness, denies pain, denies numbness and denies tingling Bilateral DP/PT pulses intact. Psych Appearance: grossly normal Mental Status: mental status grossly normal Speech and Movement: speech and movement normal Affect: normal affect Objective Last Vital Signs Temp 36.2 C L 03/19/23 07:19 Pulse 67 03/19/23 07:19 Resp 18 03/19/23 07:19 BP 111/65 03/19/23 07:19 Pulse Ox 96 03/19/23 07:19 Laboratory Results - last 24 hr 03/19/23 03/19/23 03/19/23 06:15 06:15 06:15 WBC 11.10 H RBC 4.20 L Hgb 12.8 L Hct 38.9 L MCV 93 MCH 30.5 MCHC 32.9 RDW 16.4 H Plt Count 61 L MPV Immature Gran % 0.6 Neutrophils % 72.9 Lymphocytes % 13.2 Monocytes % 11.4 Eosinophils % 1.4 Basophils % 0.5 Nucleated RBC % 0.0 Absolute Neutrophils 8.09 H Absolute Lymphocytes 1.47 Absolute Monocytes 1.27 H Absolute Eosinophils 0.16 Absolute Basophils 0.06 RBC Morphology Normal Sodium 137 Potassium 4.1 Chloride 104 Carbon Dioxide 24.2 Anion Gap 8.8 BUN 24 H Creatinine 1.2 Est GFR (CKD-EPI 2020) 62.29 Glucose 112 H Calcium 8.0 L Magnesium 1.7 L Vitamin B12 547 Time Spent with Patient Time Spent with Patient: 25-34 minutes Time was spent: preparing to see the patient(eg.review tests), ordering medications,tests, procedures, referring, communicating with other health child day care provider, indepentently interpreting results, counseling the patient and care coordination
[2023-03-19] MEDS: MAGNESIUM SULFATE 1 GM/100 ML BAG IVPB (09:57)
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
[2023-03-19] MEDS: Lactated Ringers 500 ML IV (14:44)
--- NOTE | 2023-03-19 15:47 | PT.INTREAT ---
Date of service: 03/19/23 Time of Service: 15:06 PT Notes Visit Reasons: Right Femoral Neck Fracture with Some Displacement Inpatient Physical Therapy Treatment Note [facility] Date: 03/19/23 PRECAUTIONS: Fall, standard, activity as tolerated, mckeon in place, SANGEETA alarm in place and active. SUBJECTIVE: Patient sitting in recliner with legs elevated, agreeable to therapy OBJECTIVE: PAIN: none reported BED MOBILITY/TRANSFERS Sit-stand: first visit unable. Second visit mod x2 with STEDY lift and mod verbal and max tactile cues. Stand-sit: second visit mod x2 with min verbal and mod tactile cues. Bed-Chair: Dependent, use STEDY lift Chair-bed: Dependent, use STEDY lift MANUAL: Passive ROM to RLE including hamstring stretch with maximally straightened knee (appears to be missing last 5-10 degrees of knee extension), hip not flexing past 50 degrees (well within the safe range given posterior hip precautions), gastroc stretch with grade 1 a/p ankle glides, soleus stretch with grade 1 a/p ankle glides THER EX: Patient participates sporadically with Max verbal and tactile cueing, max redirection to maintain engagement: 2x5 LAQ, 2x5 ankle pumps, 1x5 hamstring curls. THER ACT: with RN and SUPERVISOR METAL FURNITURE FABRICATION, transfer training to/from bed/chair with STEDY lift. Max verbal and tactile cues required for patient engagement as well as safety, including hand placement, foot placement, posture. ASSESSMENT: Patient appears to have difficulty initiating movement even after he has verbalized agreement and understanding of the task. PLAN: Continue global strengthening per plan of care as patient is able. Discharge to SNF vs LTC depending on patient ability to progress towards goals. TREATMENT CODE/TIME: 97952 Ther Ex 17 minutes, 48194 Manual 15 minutes beginning at 15:06. 74711 Ther Act 22 minutes beginning at 16:22.
--- NOTE | 2023-03-19 16:18 | PHA.ACLINA_ITS ---
Renal Dosing Renal Dosing: BUN 24 mg/dL (7-18) H 03/19/23 06:15 Creatinine 1.2 mg/dL (0.70-1.30) 03/19/23 06:15 Medications needing adjustments: Reviewed (Crcl ~50.7 mL/min current meds okay) Anticoagulation Anticoagulation: Hgb 12.8 g/dL (13.5-17.5) L 03/19/23 06:15 Hct 38.9 % (40.0-50.0) L 03/19/23 06:15 Plt Count 61 10^3/uL (130-400) L 03/19/23 06:15 INR 1.1 (0.9-1.1) 03/18/23 06:10 Creatinine 1.2 mg/dL (0.70-1.30) 03/19/23 06:15 DVT Prophylaxis: Reviewed (SCDs/TEDs ordered, holding chemical prophylaxis due to low platelets) Therapeutic Anticoagulation: N/A Opiate Usage Evaluate Pain Scale/Pains Meds: Reviewed Scheduled Bowel Reg ordered if on Opiates?: No (has PRN med ordered) Relevant Labs Relevant Labs: Sodium 137 mmol/L (136-145) 03/19/23 06:15 Potassium 4.1 mmol/L (3.5-5.1) 03/19/23 06:15 Chloride 104 mmol/L (98-107) 03/19/23 06:15 Magnesium 1.7 mg/dL (1.8-2.4) L 03/19/23 06:15 Electrolytes, C-Reactive P, ESR: Reviewed (PO and IV mag ordered) DM Control DM Control: Glucose 112 mg/dL (74-106) H 03/19/23 06:15 DM Control: Reviewed (no DM noted in pt's medical history A1c 5.4 on 02/19/23) Cardiac Review BP, HR, EF%: Reviewed (BP has been up and down some this admission, HR within normal limits) QTc Review QTc: N/A IV to PO Switch IV Medications: Reviewed Home Meds Home Med List reviewed: Intervened (omeprazole was not ordered, mentioned this to the provider) Relevent Home Meds Not ordered & why?: meclizine (PRN), tadalafil (PRN) Current Meds Current Medication Order Review: Reviewed Pharmacy Antibiotic Review Pharmacy Antibiotic Activity: D/C antibiotic Comments: post-op cefazolin due to complete today Comments Comments/Follow Ups: Watch BP, SCr, plts, mag, labs and for med changes (possibl e renal dose adjustments, possible additional BM meds).
[2023-03-19] MEDS: Normal Saline 500 ML IV (19:30)
[2023-03-19] MEDS: Omeprazole 20 MG CAPCR 40 MG PO (19:46)
[2023-03-19] MEDS: Magnesium Chloride 64 MG TABCR PO (19:46)
--- NOTE | 2023-03-20 | DI.US_ITS ---
Exam(s) US RENAL EXAM: US RENAL CLINICAL HISTORY: decreased urine output, r/o obstruction. TECHNIQUE: Muhammad scale, color and spectral Doppler were used. COMPARISON: None FINDINGS: Exam is limited by patient inability to follow directions and immobility. Renal size in cm: Right: 10.9 x 4.9 x 4.6 left: 12.9 x 4.1 x 3.8 Echogenicity: Normal Hydronephrosis: No Cyst or mass: No Nephrolithiasis: No Bladder:Mild diffuse wall thickening. Question a small amount of debris in the dependent portion of the bladder. Prevoid vol: 677 Postvoid vol:Unable to void. Prostate suboptimally seen. Approximate volume 56 cc. IMPRESSION: No evidence of hydronephrosis. Large bladder volume. Patient unable to void. Mild bladder wall thickening. enlarged prostate. DATA REPOSITORY:
[2023-03-20] MEDS: Acetaminophen 325 MG TAB PO (00:15)
[2023-03-20 00:45] LABS: Abs Immature Grans 0.07 10^3/uL (0.0-0.06); Absolute Basophil Count 0.06 10^3/uL (0.0-0.2); Absolute Eosinophil Count 0.25 10^3/uL (0.0-0.7); Absolute Lymphocyte Count 2.01 10^3/uL (1.2-3.4); Absolute Monocyte Count 1.72 10^3/uL (0.1-0.8); Basophils % 0.5; Eosinophils % 2.1; HCT 36.8 % (40.0-50.0); HGB 12.3 g/dL (13.5-17.5); Immature Grans % 0.6; Lymphocytes % 17.2; MCH 30.7 pg (27.0-33.0); MCHC 33.4 % (32.0-36.0); MCV 92 fL (80-95); MPV 12.4 fL (8.0-11.0); Monocytes % 14.7; Neutrophils % 64.9; RBC 4.01 10^6/uL (4.36-5.78); RDW 16.3 % (11.8-14.1); WBC 11.68 10^3/uL (4.4-10.8)
[2023-03-20 00:47] LABS: Absolute Neutrophil Count 7.58 10^3/uL (1.2-6.7)
[2023-03-20 00:48] LABS: Platelet Count 101 10^3/uL (130-400)
[2023-03-20 00:51] VITALS: O2SAT 94
[2023-03-20 00:54] LABS: Anion Gap 6.5 mmol/L (3-11); BUN 25 mg/dL (7-18); CO2 25.5 mmol/L (21.0-32.0); CREATININE 1.2 mg/dL (0.70-1.30); Calcium 8.2 mg/dL (8.5-10.1); Chloride 102 mmol/L (98-107); Estimated GFR 62.29 (mL/min/1.73m2); Glucose 118 mg/dL (74-106); Magnesium 1.8 mg/dL (1.8-2.4); Potassium 3.6 mmol/L (3.5-5.1); Sodium 134 mmol/L (136-145)
[2023-03-20 01:01] LABS: Diff Comment Agrees w/ Instrument; RBC Morphology Normal
[2023-03-20 02:10] VITALS: BP 144/71; PULSE 82; RESP 18; TEMP 37.2; O2SAT 94
[2023-03-20] MEDS: Normal Saline 500 ML IV ×2 (02:38→06:37)
[2023-03-20] MEDS: Levothyroxine 100 MCG TAB PO (05:22)
[2023-03-20 06:29] VITALS: BP 139/75; PULSE 69; RESP 18; TEMP 36.2; O2SAT 94
[2023-03-20] MEDS: Gabapentin 300 MG CAP PO ×3 (07:21→19:33)
[2023-03-20] MEDS: Cholecalciferol (Vitamin D3) 1,000 UNIT TAB 4000 UNITS PO (07:21)
[2023-03-20] MEDS: Sertraline 50 MG TAB PO (07:21)
[2023-03-20] MEDS: Losartan 50 MG TAB PO (07:21)
[2023-03-20] MEDS: Magnesium Chloride 64 MG TABCR PO ×2 (07:21→19:33)
[2023-03-20] MEDS: Omeprazole 20 MG CAPCR 40 MG PO ×2 (07:21→19:33)
[2023-03-20] MEDS: Oxybutynin-CR 5 MG TABCR 10 MG PO (07:21)
--- NOTE | 2023-03-20 09:37 | DI.VRAD_ITS ---
PROCEDURE INFORMATION: Exam: US Retroperitoneal; Complete; Kidneys and Bladder Exam date and time: 03/20/2023 8:57 AM Age: 78 years old Clinical indication: Other: Decreased urine output TECHNIQUE: Imaging protocol: Real-time ultrasound of the retroperitoneum with image documentation. Complete exam focused on the kidneys and bladder. COMPARISON: US LOWER EXTREMITY VENOUS LT 05/16/2019 12:30 PM FINDINGS: Right kidney: Small with a volume of 128 cc; 155 cc normal. Thinning and lobulated renal cortex. Mild central lipomatosis. No stones. No hydronephrosis. Left kidney: Small with a volume of 106 cc; 155 cc normal. Thinning and lobulated renal cortex. Mild central lipomatosis. No stones. No hydronephrosis. Urinary bladder: Unremarkable. Volume 677 cc. No postvoid image was acquired. Prostate: The prostate contains no definite cysts or masses. It has a volume of 56 cc; < 40 cc normal. IMPRESSION: 1. Mildly enlarged prostate gland. No bladder trabeculation to suggest outlet obstruction. 2. Small kidneys. No evidence for hydronephrosis. Dictated and Authenticated by: Phong Mott MD. Ordering:MILKA Wilson MD
--- NOTE | 2023-03-20 11:02 | PTTR_ITS ---
PT Notes Visit Reasons: Right Femoral Neck Fracture with Some Displacement 03/20/2023 Precautions: Fall. Standard.? WBAT on R LE with AD.? On Oxygen supp at 1.% L/minute via NC. Subjective: Pt in recliner when approached for therapy this morning, Pt very pleasant and agreed to participating with therapy, pt NC not on nostril and was repositioned for proper ventilation. THEREX: Patient was instructed in a seated LE strengthening program, to include: ankle pumps, heel raises, LAQ, hip flexion and hip abduction on left LE, PROM for Right LE in hip flexion, abduction, external rotation, knee flexion, ankle ROM, heel cord stretch bilaterally, glute sets, UE chest expansion exercises, deep breathing exercises, BUE AROM all planes multidirectinal weight shifting while in the the seated position. pt expressed that he woulkd like to urinate after activity, HYDROMETEOROLOGY TEACHER called for assistance. PLAN: Continue with global strengthening and continue with standing balance activity and gait training, as tolerated for progression toward baseline level of function. TREATMENT CODE/TIME: 17 minutes; 33972 (10:40-10:57 am)
[2023-03-20 11:14] VITALS: BP 125/69; PULSE 79; RESP 16; TEMP 37.1; O2SAT 95
--- NOTE | 2023-03-20 11:23 | W.PM.PROGNOT ---
Date of Service Date of service: 03/20/23 Time of Service: : Assessment and Plan Assessment and plan (1) Displaced fracture of right femoral neck: Status: Acute Assessment and plan: Mechanical fall resulting in displaced right femoral neck fracture Post op day # 2 ?status post right hip hemiarthroplasty Reg diet postop,ambulate as tolerated per ortho restrictions, multi-? modal pain control (APAP and ketorolac and iv hydromorphone all written prn. I will dc the hydromorphone, not uses since yesterday morning; use Nucynta instead; continue ketorolac on prn basis and change APAP to 1000 mg tid scheduled, rather than wait for pain to occur Indwelling urinary catheter discontinued - scant urine, 500 ml LR bolus given; bladder scan with straight cath if needed He probably will need mckeon to be replaced. continue P.T. Baseline dysfxn will need SNF (2) Hypothyroidism: Status: Active Assessment and plan: Stable, continue home med (3) Gastroesophageal reflux disease: Status: Active Assessment and plan: Stable, continue home med (4) Anxiety: Assessment and plan: Lorazepam PRN (5) DVT prophylaxis: Status: Acute Assessment and plan: Hold chemical DVT prophylaxis s/t platelet count continue SCDs/TIA hose. Platelets back up to 100, 000; will resume aspirin for DVT prophylaxis (6) Discharge planning issues: Status: Acute Assessment and plan: Likely will need SNF but will give him through the weekend to see what progress he makes w/ P.T. code status is DNR/DNI Subjective Subjective Interval history since last seen: Patient has had problems w/ voiding. he sees a urologist in [place] and reportedly had a procedure done in the past. Overnight he had little to no urine ouput. The senior sustainability consultant gave him fluid boluses totaling 1500 mL and reportedly his bladder scans were nil. Renal US was ordered by the senior sustainability consultant for this morning and when the patient was asked to hold his urine for the scanning he had become incontinent of 250 mL of urine. I have asked nursing to perform urinary post void residual scans every 6 hr and if they have to repeatedly cath him then we will have them place mckeon and I will consult w/ Dr. Perea on Wednesday. I have added Flomax to his regimen. Otherwise he feels fine, no nausea or vomiting. He reportedly is moving his bowels. he is eating find. Hip pain is tolerable. Exam Narrative Exam Narrative: Elderly white male who was being assisted back to his chair when I entered the room. He requires assistance of two people w/ use of steady lift device Lungs: prolonged expiratory phase but otherwise clear Heart: RRR [place]: obese, slightly distended but soft, normal active bowel sounds; some distension over the suprapubic area (?bladder distension) Extremities: no edema Objective Last Vital Signs Temp 37.1 C 03/20/23 11:14 Pulse 79 03/20/23 11:14 Resp 16 03/20/23 11:14 BP 125/69 03/20/23 11:14 Pulse Ox 95 03/20/23 11:14 Laboratory Results - last 24 hr 03/20/23 03/20/23 00:30 00:30 WBC 11.68 H RBC 4.01 L Hgb 12.3 L Hct 36.8 L MCV 92 MCH 30.7 MCHC 33.4 RDW 16.3 H Plt Count 101 L D MPV 12.4 H Immature Gran % 0.6 Neutrophils % 64.9 Lymphocytes % 17.2 Monocytes % 14.7 Eosinophils % 2.1 Basophils % 0.5 Nucleated RBC % 0.0 Absolute Neutrophils 7.58 H Absolute Lymphocytes 2.01 Absolute Monocytes 1.72 H Absolute Eosinophils 0.25 Absolute Basophils 0.06 RBC Morphology Normal Sodium 134 L Potassium 3.6 Chloride 102 Carbon Dioxide 25.5 Anion Gap 6.5 BUN 25 H Creatinine 1.2 Est GFR (CKD-EPI 2020) 62.29 Glucose 118 H Calcium 8.2 L Magnesium 1.8 Time Spent with Patient Time Spent with Patient: 35-49 minutes Time was spent: preparing to see the patient(eg.review tests), ordering medications,tests, procedures, referring, communicating with other health family day care provider, indepentently interpreting results, counseling the patient and care coordination
[2023-03-20] MEDS: Tamsulosin 0.4 MG CAPCR PO (12:03)
[2023-03-20] MEDS: Acetaminophen 500 MG TAB 1000 MG PO ×2 (13:22→19:33)
[2023-03-20] MEDS: Apixaban 2.5 MG TAB PO ×2 (13:22→19:33)
[2023-03-20] MEDS: Ondansetron 4 MG/2 ML VIAL IVP (14:31)
[2023-03-20 15:04] VITALS: BP 106/66; PULSE 84; RESP 16; TEMP 37.1; O2SAT 98
[2023-03-20 19:03] VITALS: BP 98/62; PULSE 80; RESP 18; TEMP 37.4; O2SAT 98
[2023-03-20] MEDS: Zolpidem 5 MG TAB PO (19:34)
[2023-03-21] VITALS (11 sets, daily range): BP systolic 80–123; BP diastolic 45–73; PULSE 64–79; RESP 16–18; TEMP 35.5–36.4; O2SAT 95–99
[2023-03-21] MEDS: Levothyroxine 100 MCG TAB PO (06:27)
[2023-03-21] MEDS: Oxybutynin-CR 5 MG TABCR 10 MG PO (08:28)
[2023-03-21] MEDS: Acetaminophen 500 MG TAB 1000 MG PO ×3 (08:28→20:16)
[2023-03-21] MEDS: Cholecalciferol (Vitamin D3) 1,000 UNIT TAB 4000 UNITS PO (08:28)
[2023-03-21] MEDS: Magnesium Chloride 64 MG TABCR PO ×2 (08:29→20:16)
[2023-03-21] MEDS: Omeprazole 20 MG CAPCR 40 MG PO ×2 (08:29→20:16)
[2023-03-21] MEDS: Tamsulosin 0.4 MG CAPCR PO (08:29)
[2023-03-21] MEDS: Sertraline 50 MG TAB PO (08:29)
[2023-03-21] MEDS: Gabapentin 300 MG CAP PO ×3 (08:29→20:16)
[2023-03-21] MEDS: Losartan 50 MG TAB PO (08:29)
[2023-03-21] MEDS: Apixaban 2.5 MG TAB PO ×2 (08:29→20:16)
--- NOTE | 2023-03-21 09:05 | W.PM.PROGNOT ---
Date of Service Date of service: 03/21/23 Time of Service: 08:10 Assessment and Plan Assessment and plan (1) Displaced fracture of right femoral neck: Status: Acute Assessment and plan: Steve is a 78-year-old who is postop day 3 status post right hip hemiarthroplasty for femoral neck fracture. It is postoperative course is going to be challenging given the notable limitations he has from chronic hemiparesis from childhood. He has some limited function of the right foot and leg which is likely multifactorial. He does not seem to have any acute changes to his neurologic exam from the preoperative exam. He has been able to work with physical therapy although with some limitations. I would encourage continued progressive ambulation. He will likely need nursing home facility for acute rehabilitation due to the current hip as well as previous hemiparesis. He is weightbearing as tolerated. Epics dressing can stay in place for least 1 week. Daily physical therapy. Restart anticoagulation per medicine team. Subjective Subjective Interval history since last seen: Steve is a 78-year-old who is postop day #2 status post right hip hemiarthroplasty for femoral neck fracture. There has not been any notable concerns or acute complications. He has been able to work with physical therapy minimally. He is limited at baseline due to contractures and weakness. No fevers no chills. Exam Narrative Exam Narrative: Sitting up in the hospital bed. No acute distress. Evaluation of the right hip shows a clean dry and intact dressing. Mild swelling and ecchymosis but easily compressible. Examination is limited of the right leg given that he is quite stiff. His hip is in a flexed position with his knee in a flexed position. This makes leg length and appearance difficult to ascertain. However, I am able to demonstrate hip flexion and some slight internal and external rotation without significant pain. He has significant weakness about the lower extremity but he is demonstrating some active ankle dorsiflexion and plantarflexion although it is quite weak and minimal. Endorses full sensation over the foot. Objective Last Vital Signs Temp 35.5 C L 03/21/23 11:13 Pulse 66 03/21/23 11:13 Resp 18 03/21/23 03:58 BP 80/50 L 03/21/23 11:21 Pulse Ox 99 03/21/23 11:13 Time Spent with Patient Time Spent with Patient: <25 minutes Time was spent: obtaining and/or reviewing separately otained hiistory, indepentently interpreting results and counseling the patient
[2023-03-21] MEDS: Ketorolac 15 MG/ML VIAL IVP ×2 (09:24→23:19)
[2023-03-21] MEDS: Normal Saline Flush 10 ML SYR IVP ×2 (09:24→23:20)
--- NOTE | 2023-03-21 10:15 | PT.INTREAT ---
PT Notes Visit Reasons: Right Femoral Neck Fracture with Some Displacement 03/21/2023 Precautions: Fall. Standard.? WBAT on R LE with AD.? On Oxygen supp at 1.% L/minute via NC. Subjective: Pt in recliner when approached for therapy this morning, Pt very pleasant and agreed to participating with therapy. Therapeutic Activities 61181 15mins: instruction in dynamic activities with one on one patient contact by the provider to improve functional performance?as follows: Sit to stand from recliner to steady lift min A initially 1.30mins, CGA on second sit to stand 2.30mins, SBA on third sit to stand 4mins Therapeutic procedures 60560 10mins: Instruction in therapeutic exercises to develop strength and endurance, range of motion and flexibility. HEP instruction and review: Provided skilled instruction in proper exercise performance: Provided skilled manual cues to facilitate proper muscle recruitment and/or movement pattern: Patient was instructed in a seated LE strengthening program, to include: ankle pumps, heel raises, LAQ, hip flexion and hip abduction on left LE, PROM for Right LE in hip flexion, abduction, external rotation, knee flexion, ankle ROM, heel cord stretch bilaterally, glute sets, UE chest expansion exercises, deep breathing exercises, BUE AROM all planes. ?PLAN: Continue with global strengthening and continue with standing balance activity and gait training, as tolerated for progression toward baseline level of function. ?TREATMENT CODE/TIME:? 25 minutes; [id number] (9:50-10:15 am)
[2023-03-21] MEDS: Lactated Ringers 500 ML IV (11:51)
--- NOTE | 2023-03-21 13:21 | W.PM.PROGNOT ---
Date of Service Date of service: 03/21/23 Time of Service: 13:22 Assessment and Plan Assessment and plan (1) Displaced fracture of right femoral neck: Status: Acute Assessment and plan: Mechanical fall resulting in displaced right femoral neck fracture Post op day # 3 ?status post right hip hemiarthroplasty Reg diet, ambulate as tolerated per ortho restrictions, multi-? modal pain control- continue Nucynta, continue ketorolac on prn basis and scheculed APAP Hooks replaced s/t retention, urology consult pending continue P.T. Baseline dysfxn will need SNF (2) Hypothyroidism: Status: Active Assessment and plan: Stable, continue home med (3) Gastroesophageal reflux disease: Status: Active Assessment and plan: Stable, continue home med (4) Anxiety: Assessment and plan: Lorazepam PRN (5) DVT prophylaxis: Status: Acute Assessment and plan: continue aspirin for DVT prophylaxis (6) Discharge planning issues: Status: Acute Assessment and plan: Likely will need SNF but will give him through the weekend to see what progress he makes w/ P.T. code status is DNR/DNI Discussed with Dr Hackett Subjective Subjective Patient reports: no new complaints, tolerating a regular diet, voiding w/o difficulty (catheter), bowel movement and afebrile; denies flatus, diarrhea, nausea or vomiting Interval history since last seen: Unable to stand without two person assist Exam Const General: cooperative, healthy appearing and no acute distress HENMT Head: normal to inspection Face and sinus: normal facial exam Eyes General: appearance normal, both eyes and all related structures EOM: EOM intact bilaterally Neck Neck: normal visual inspection Lymphatic: no lymphadenopathy noted Chest Chest: normal inspection of the chest Resp Effort & Inspection: normal respiratory effort and able to speak in complete sentences Auscultation: clear to auscultation bilaterally Cardio Rate: regular rate Rhythm: regular rhythm GI Inspection: normal to inspection Palpation: soft Auscultation: normal bowel sounds Back/Spine/Pelvis Thoracic/Lumbar Spine: thoracic and lumbar spine normal to inspection Skin General skin exam: no rashes or lesions noted Neuro General: patient alert, patient awake and patient oriented x3 Cognition: normal cognition Speech: speech normal Motor: muscle tone normal throughout Sensory Exam: no sensory deficits noted Extrem Other: Limited rom to right lower extremity stiffness, denies pain, denies numbness and denies tingling; dsg clean and dry Bilateral DP/PT pulses intact. Psych Appearance: grossly normal Mental Status: mental status grossly normal Speech and Movement: speech and movement normal Affect: normal affect Objective Last Vital Signs Temp 35.5 C L 03/21/23 11:13 Pulse 66 03/21/23 11:13 Resp 18 03/21/23 03:58 BP 101/62 03/21/23 12:59 Pulse Ox 99 03/21/23 11:13 Time Spent with Patient Time Spent with Patient: 35-49 minutes Time was spent: preparing to see the patient(eg.review tests), ordering medications,tests, procedures, indepentently interpreting results, counseling the patient and care coordination
[2023-03-21] MEDS: Lactated Ringers 1,000 ML 125 ML IV (19:35)
[2023-03-21] MEDS: Lactated Ringers 250 ML IV (19:44)
[2023-03-21] MEDS: Zolpidem 5 MG TAB PO (23:19)
[2023-03-22 00:03] VITALS: BP 119/71; PULSE 73; RESP 16; TEMP 36.6; O2SAT 98
[2023-03-22] MEDS: Lactated Ringers 1,000 ML 125 ML IV (01:31)
[2023-03-22 05:04] VITALS: BP 119/61; PULSE 68; RESP 16; TEMP 36.4; O2SAT 97
[2023-03-22] MEDS: Levothyroxine 100 MCG TAB PO (06:22)
[2023-03-22 07:15] LABS: Abs Immature Grans 0.07 10^3/uL (0.0-0.06); Absolute Basophil Count 0.04 10^3/uL (0.0-0.2); Absolute Eosinophil Count 0.43 10^3/uL (0.0-0.7); Absolute Monocyte Count 0.81 10^3/uL (0.1-0.8); Absolute Neutrophil Count 5.06 10^3/uL (1.2-6.7); Basophils % 0.5; Eosinophils % 5.8; HCT 32.8 % (40.0-50.0); HGB 10.9 g/dL (13.5-17.5); Immature Grans % 0.9; Lymphocytes % 13.5; MCH 30.4 pg (27.0-33.0); MCHC 33.2 % (32.0-36.0); MCV 92 fL (80-95); Monocytes % 10.9; Neutrophils % 68.4; Platelet Count 100 10^3/uL (130-400); RBC 3.58 10^6/uL (4.36-5.78); WBC 7.41 10^3/uL (4.4-10.8)
[2023-03-22 07:25] VITALS: O2SAT 97
[2023-03-22 07:30] LABS: Anion Gap 8.1 mmol/L (3-11); BUN 23 mg/dL (7-18); CO2 26.9 mmol/L (21.0-32.0); CREATININE 1.2 mg/dL (0.70-1.30); Chloride 105 mmol/L (98-107); Estimated GFR 62.29 (mL/min/1.73m2); Glucose 99 mg/dL (74-106); Magnesium 1.7 mg/dL (1.8-2.4); Sodium 140 mmol/L (136-145)
[2023-03-22] MEDS: Omeprazole 20 MG CAPCR 40 MG PO (08:11)
[2023-03-22] MEDS: Oxybutynin-CR 5 MG TABCR 10 MG PO (08:12)
[2023-03-22] MEDS: Cholecalciferol (Vitamin D3) 1,000 UNIT TAB 4000 UNITS PO (08:13)
[2023-03-22] MEDS: Magnesium Chloride 64 MG TABCR PO (08:13)
[2023-03-22] MEDS: Apixaban 2.5 MG TAB PO (08:13)
[2023-03-22] MEDS: Tamsulosin 0.4 MG CAPCR PO (08:14)
[2023-03-22] MEDS: Sertraline 50 MG TAB PO (08:14)
[2023-03-22] MEDS: Acetaminophen 500 MG TAB 1000 MG PO ×2 (08:14→14:06)
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
[2023-03-22] MEDS: Losartan 50 MG TAB PO (08:16)
[2023-03-22] MEDS: Gabapentin 300 MG CAP PO ×2 (08:16→14:07)
[2023-03-22 08:23] VITALS: BP 146/67; PULSE 85; RESP 16; TEMP 36.3; O2SAT 96
--- NOTE | 2023-03-22 08:27 | RESPIRATORY ---
Rt spoke with patient's son Jewel Griffin concerning if patient wore any oxygen at home. Nursing received report that patient wears 2L at night, RT called son to confirm. Son stated patient does not wear oxygen at home, RT will titrate O2 to maintain SpO2 to greater than 92%
[2023-03-22 08:30] VITALS: O2SAT 97
--- NOTE | 2023-03-22 09:25 | PDOC.CMPRO ---
Date of service: 03/22/23 Time of Service: 09:25 Care Management Progress Note Progress Note Text Progress Note Text: S/O: Steve was sitting up in bed when CM met with him. He was polite but stated that he is not having a good day. He informed the STEAMING CABINET TENDER that he is having heel pain. Steve has not requested any pain medicine from nursing staff this morning, but it will be offered. The last time he was medicated was last night just before midnight. Steve has agreed to go to rehab and has a bed offer at [facility] pending prior authorization approval from . A:Steve is a 78 year old man admitted on 03/17/23 with a fractured hip P:PT has recommended that Steve go to a SNF for short term rehab prior to returning home. He has informed CM that he would be willing to do so. Referrals were sent to [facility] and [facility]. A bed offer was received almost immediately from [facility] and they will begin the process for prior authorization. It is possible that Steve will need to transition to termite treater helper care so CM provided his son Jewel with a LTM application. Steve will follow up with the facility providers and plan of care and transport via w/c van. CM will follow and assess for ongoing discharge concerns.
--- NOTE | 2023-03-22 09:40 | NUR.NOTE ---
Nursing Note: Pt HGB was 10.9 L HCT 32.8 L and Ca 8.0 L all trending down this am when labs were drawn. Let charge nurse know @ [id number] in case doctor wanted to replace Ca
[2023-03-22 09:52] VITALS: O2SAT 95
[2023-03-22] MEDS: MAGNESIUM SULFATE 1 GM/100 ML BAG IVPB (10:06)
--- NOTE | 2023-03-22 10:54 | PT.INTREAT ---
Date of service: 03/22/23 Time of Service: 09:46 PT Notes Visit Reasons: Right Femoral Neck Fracture with Some Displacement Inpatient Physical Therapy Treatment Note [facility] Date: 03/22/23 PRECAUTIONS: Fall, standard, activity as tolerated. Hooks catheter in place. IV access Left elbow, right dorsum of hand. SUBJECTIVE: Patient reports feeling not great reports heel pain which he believes is being caused by his toenails. Fowlers position in bed with right leg internally rotated, agreeable to therapy. OBJECTIVE: PAIN: 8/10 heel pain. BED MOBILITY/TRANSFERS Rolling L/R: SBA with verbal cues Supine-sit: min assist with verbal cues Sit-supine: min assist with verbal cues Sit-stand: mod assist with verbal cues Stand-sit: CGA with verbal cues Bed-Chair: Unable Chair-bed: Unable GAIT Assistive Device: steffany walker. AFTERNOON: FWW with platform for R arm, with verbal approval from PT Sydney De La Fuente. Weight bearing: WBAT right leg with assistive device. Assist: Mod assist AFTERNOON: Min-CGA Distance: morning: in place weight shifting, marching AFTERNOON: 5 feet Deviation: Right leg internally rotated, Right knee remains bent, antalgic gait pattern. VITALS: monitored by nursing staff. NEURO YANY: Patient participates in seated and standing balance training including unsupported sitting vs perturbations, Standing with steffany walker support, seated reaching activity. THERACT: Transfer training including sit to stand, stand to sit with verbal cues for safety, sequence, hand placement; bed mobility training including supine to sit, sit to supine, scooting towards head of bed, education re: use of steffany walker vs FWW with forearm platform. ASSESSMENT: Patient tolerates therapy well, performs much better with platform on FWW, appears more confident, balance noticeably improved. PLAN: Continue global strengthening per plan of care. TREATMENT CODE/TIME: 30776 Ther Act Neuro Yany 13 minutes beginning at 9:46 AFTERNOON [id number] Gait 24 minutes beginning at 13:43
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
--- NOTE | 2023-03-22 15:27 | PDOC.CMDIS ---
Date of service: 03/22/23 Time of Service: 15:28 LACE Index Scoring Tool Questions: Length of Stay (in days): 4 - 6 Was the patient admitted via the E.D.?: Yes Comorbidities: Any Tumor E.D. Visits: 1 Answers: Total Score: 10 Risk of Readmission: High Risk Care Management Discharge Plan Reason for Hospitalization: displaced fracture of femoral neck Discharge Plan: Steve will be discharged to [facility] later today. he will transport via facility w/c van and follow up with facility providers and plan of care. Patient/Family Education Needs: Review of discharge instructions, activity, limitations, follow up plan, discuss Ask Me Three Services Needed at Discharge: Assisted Facility
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
== END 2023-03-22 15:50 | disposition skilled nursing facility (03) | DRG 522 ==
LOC: ER 13:38 → MS 14:06
PROVIDERS: Nurse Practitioner Family; Student in an Organized Health Care Education/Training Program; Admitting Provider Internal Medicine; Emergency Provider Physician Assistant; PCP Nurse Practitioner Family; Visit Provider Internal Medicine
PROC: 0SRR0JA Replacement of Right Hip Joint, Femoral Surface with Synthetic Substitute, Uncemented, Open Approach (ICD-10-PCS; CPT 27125; principal; 2023-03-18 17:15)
DX: S72.011A Unspecified intracapsular fracture of right femur, initial encounter for closed fracture (principal); G81.91 Hemiplegia, unspecified affecting right dominant side; E03.9 Hypothyroidism, unspecified; K21.9 Gastro-esophageal reflux disease without esophagitis; F41.9 Anxiety disorder, unspecified; R33.9 Retention of urine, unspecified; W19.XXXA Unspecified fall, initial encounter; R73.03 Prediabetes; H90.3 Sensorineural hearing loss, bilateral; F32.A Depression, unspecified; D45 Polycythemia vera; M54.16 Radiculopathy, lumbar region; Z85.46 Personal history of malignant neoplasm of prostate; G43.909 Migraine, unspecified, not intractable, without status migrainosus; Z87.891 Personal history of nicotine dependence; D69.6 Thrombocytopenia, unspecified; Z66 Do not resuscitate
CPT/HCPCS: 27236; 36415; 73552; 76770; 80048; 80053; 86850; 86900; 86901; 87635; 96374; 97110; 97112; 97116; 97140; 97162; 97530; 99221; 99223; 99285; J1650; 71045; 73502; 81003; 81015; 82607; 83735; 84443; 85025; 85610; 99222; 99232; 99239; J0690; J1170; J1885; J2001; J2405; J2704; J3010; J3475

== ENCOUNTER → 2023-03-22 07:53 | Outpatient (BNVA) | payer MEDICARE, SELFPAY | PROVIDERS: PCP Nurse Practitioner Family; Referring Provider Nurse Practitioner Family; Visit Provider Urology ==

== ENCOUNTER → 2023-03-30 12:41 | Outpatient (CLI) | payer MEDICARE, SELFPAY ==
--- NOTE | 2023-03-30 15:32 | DI.RAD_ITS ---
Exam(s) XR FOOT RT COMPLETE EXAM: XR FOOT RT COMPLETE CLINICAL HISTORY: RT FOOT SWELLING. TECHNIQUE: 2D digital imaging was performed. Three views. COMPARISON: No exams were available for comparison FINDINGS: BONES: No acute fracture is present. No bony destructive lesion is seen. JOINTS: No dislocation present. Mild degenerative changes, mainly in the toes. SOFT TISSUE: Soft tissue swelling. Vascular calcifications. No foreign body or abnormal gas collect ion. IMPRESSION: Soft tissue swelling. DATA REPOSITORY: RADIATION DOSE DELIVERED:
== END ==
PROVIDERS: PCP Nurse Practitioner Family; Visit Provider Physician Assistant
DX: R22.41 Localized swelling, mass and lump, right lower limb (principal)
CPT/HCPCS: 73630

== ENCOUNTER 2023-04-07 10:00 | Outpatient (CLI) | payer MEDICARE, SELFPAY ==
--- NOTE | 2023-04-07 09:30 | DI.RAD_ITS ---
Exam(s) XR HIP RT 1V EXAM: XR HIP RT 1V CLINICAL HISTORY: right hip f/u. TECHNIQUE: 2D digital imaging was performed of the right hip. One images were obtained. AP views we re obtained. COMPARISON: CR XR HIP RT COMPLETE AP PELVIS from 03/18/2023 FINDINGS: BONES: No acute fracture is present. No bony destructive lesion is seen. JOINTS: There are stable postsurgical changes of a right hip prosthesis. No lucencies are seen on th is single image around the prosthesis to suggest loosening or infection. SOFT TISSUE: Atherosclerosis. IMPRESSION: This is a limited examination which shows an unremarkable right hip prosthesis. DATA REPOSITORY: RADIATION DOSE DELIVERED:
== END 2023-04-07 10:01 | disposition home or self-care (01) ==
LOC: DIORS 10:00
PROVIDERS: PCP Nurse Practitioner Family; Referring Provider Nurse Practitioner Family; Visit Provider Student in an Organized Health Care Education/Training Program
DX: S72.001D Fracture of unspecified part of neck of right femur, subsequent encounter for closed fracture with routine healing (principal); X58.XXXD Exposure to other specified factors, subsequent encounter
CPT/HCPCS: 73501

== ENCOUNTER 2023-04-13 08:36 | Outpatient (REF) | payer MEDICARE, SELFPAY ==
[2023-04-13 13:18] LABS: HCT 37.8 % (40.0-50.0); HGB 12.7 g/dL (13.5-17.5); MCH 32.2 pg (27.0-33.0); MCHC 33.6 % (32.0-36.0); MCV 96 fL (80-95); MPV 12.6 fL (8.0-11.0); Platelet Count 126 10^3/uL (130-400); RBC 3.94 10^6/uL (4.36-5.78); RDW 17.1 % (11.8-14.1); RDW-SD 60.6 fL; WBC 14.55 10^3/uL (4.4-10.8)
[2023-04-13 13:31] LABS: Bilirubin Negative (Negative); Blood Moderate (Negative); Clarity Sl Cloudy (Clear); Glucose Negative (Negative); Ketones Negative (Negative); Leukocyte Esterase Small (Negative); Nitrite Positive (Negative); Specific Gravity 1.025 (1.005-1.025); pH 6.5 (5-8)
[2023-04-13 13:36] LABS: ALT 172 U/L (16-63); AST 206 U/L (15-37); Albumin 2.2 g/dL (3.4-5.0); Alkaline Phosphatase 308 U/L (46-116); Anion Gap 6.4 mmol/L (3-11); BUN 36 mg/dL (7-18); Bilirubin, Total 1.1 mg/dL (0.2-1.0); CO2 28.6 mmol/L (21.0-32.0); Calcium 8.6 mg/dL (8.5-10.1); Chloride 101 mmol/L (98-107); Estimated GFR 77.52 (mL/min/1.73m2); Glucose 94 mg/dL (74-106); Potassium 4.4 mmol/L (3.5-5.1); Sodium 136 mmol/L (136-145); Total Protein 6.9 g/dL (6.4-8.2)
[2023-04-13 13:44] LABS: Bacteria Moderate HPF (Negative); C & S Indicated? Yes; Casts Negative LPF (Negative); Crystals Negative HPF (Negative); Epithelial Cells Rare HPF (Negative); Mucus Trace (Negative)
== END 2023-04-13 08:37 | disposition home or self-care (01) ==
LOC: LBN 08:36
PROVIDERS: PCP Nurse Practitioner Family; Visit Provider Physician Assistant
DX: R53.83 Other fatigue (principal); R79.89 Other specified abnormal findings of blood chemistry; R82.998 Other abnormal findings in urine; R73.03 Prediabetes; R82.79 Other abnormal findings on microbiological examination of urine
CPT/HCPCS: 80053; 85027; 87077; 81003; 81015; 87086; 87186

== ENCOUNTER 2023-07-14 13:19 | Outpatient (CLI) | payer MEDICARE, SELFPAY ==
--- NOTE | 2023-07-14 10:00 | DI.RAD_ITS ---
Exam(s) XR HIP RT AP LAT ONLY EXAM: XR HIP RT AP LAT ONLY CLINICAL HISTORY: F/U RIGHT HIP FRACTURE. TECHNIQUE: 2D digital imaging was performed. Three images were obtained. AP and lateral views were obtained. COMPARISON: CR XR HIP RT 1V from 04/07/2023 FINDINGS: BONES: There are stable post operative changes right hip prosthesis present. No fracture or dislocat ion. JOINTS: The orthopedic hardware is in good position. No evidence of hardware loosening. SOFT TISSUE: Atherosclerosis. IMPRESSION: Stable postoperative changes. DATA REPOSITORY: RADIATION DOSE DELIVERED:
== END 2023-07-14 13:20 | disposition home or self-care (01) ==
LOC: DIORS 13:19
PROVIDERS: PCP Nurse Practitioner Family; Referring Provider Nurse Practitioner Family; Visit Provider Student in an Organized Health Care Education/Training Program
DX: Z47.1 Aftercare following joint replacement surgery (principal); Z96.641 Presence of right artificial hip joint
CPT/HCPCS: 99213; 73502

== ENCOUNTER 2023-08-13 18:33 | Outpatient (REF) | payer MEDICARE, SELFPAY ==
[2023-08-13 17:51] LABS: TSH 0.85 uIU/mL (0.36-3.74)
== END 2023-08-13 18:34 | disposition home or self-care (01) ==
LOC: LBN 18:33
PROVIDERS: PCP Nurse Practitioner Family; Visit Provider Family Medicine
DX: E03.9 Hypothyroidism, unspecified (principal)
CPT/HCPCS: 84443

== ENCOUNTER 2023-10-30 14:04 | Outpatient (REF) | payer MEDICARE, SELFPAY ==
[2023-10-30 15:53] LABS: Anion Gap 8.2 mmol/L (3-11); BUN 13 mg/dL (7-18); CO2 27.8 mmol/L (21.0-32.0); CREATININE 0.9 mg/dL (0.70-1.30); Calcium 8.8 mg/dL (8.5-10.1); Chloride 105 mmol/L (98-107); Estimated GFR 87.96 (mL/min/1.73m2); Glucose 98 mg/dL (74-106); Magnesium 1.6 mg/dL (1.8-2.4); Potassium 4.1 mmol/L (3.5-5.1); Sodium 141 mmol/L (136-145)
== END 2023-10-30 14:05 | disposition home or self-care (01) ==
LOC: LBN 14:04
PROVIDERS: PCP Nurse Practitioner Family; Referring Provider Family Medicine; Visit Provider Family Medicine
DX: E03.9 Hypothyroidism, unspecified (principal); M19.91 Primary osteoarthritis, unspecified site; E83.42 Hypomagnesemia
CPT/HCPCS: 80048; 83735

== ENCOUNTER 2023-12-14 18:38 | Outpatient (REF) | payer MEDICARE, SELFPAY ==
[2023-12-14 19:34] LABS: Anion Gap 7.8 mmol/L (3-11); BUN 20 mg/dL (7-18); CO2 27.2 mmol/L (21.0-32.0); Calcium 8.8 mg/dL (8.5-10.1); Chloride 105 mmol/L (98-107); Estimated GFR 77.52 (mL/min/1.73m2); Glucose 88 mg/dL (74-106); Magnesium 1.7 mg/dL (1.8-2.4); Potassium 3.8 mmol/L (3.5-5.1); Sodium 140 mmol/L (136-145)
[2023-12-14 19:45] LABS: T4 11.1 ug/dL (4.7-13.3)
== END 2023-12-14 18:39 | disposition home or self-care (01) ==
LOC: LBO 18:38
PROVIDERS: PCP Nurse Practitioner Family; Visit Provider Family Medicine
DX: E03.9 Hypothyroidism, unspecified (principal)
CPT/HCPCS: 80048; 83735; 84436; 84443

== ENCOUNTER 2024-01-18 12:37 | Outpatient (REF) | payer MEDICARE, SELFPAY ==
[2024-01-18 13:49] LABS: TSH 1.06 uIU/Ml (0.36-3.74)
== END 2024-01-18 12:38 | disposition home or self-care (01) ==
LOC: LBN 12:37
PROVIDERS: PCP Nurse Practitioner Family; Visit Provider Family Medicine
DX: E03.9 Hypothyroidism, unspecified (principal)
CPT/HCPCS: 84443

== ENCOUNTER 2024-01-25 17:43 | Outpatient (REF) | payer MEDICARE, SELFPAY ==
[2024-01-25 17:53] LABS: HCT 37.2 % (40.0-50.0); HGB 12.1 g/dL (13.5-17.5); MCH 30.4 pg (27.0-33.0); MCHC 32.5 % (32.0-36.0); MCV 94 fL (80-95); RBC 3.98 10^6/uL (4.36-5.78); RDW 13.9 % (11.8-14.1); RDW-SD 47.9 fL; WBC 5.31 10^3/uL (4.4-10.8)
[2024-01-25 18:20] LABS: TSH 1.29 uIU/Ml (0.36-3.74)
[2024-01-25 18:23] LABS: Platelet Count 78 10^3/uL (130-400)
== END 2024-01-25 17:44 | disposition home or self-care (01) ==
LOC: LBN 17:43
PROVIDERS: PCP Nurse Practitioner Family; Visit Provider Nurse Practitioner Family
DX: E03.9 Hypothyroidism, unspecified (principal)
CPT/HCPCS: 85027; 84443

== ENCOUNTER 2024-04-02 08:31 | Outpatient (REF) | payer MEDICARE, SELFPAY ==
[2024-04-02 08:53] LABS: Abs Immature Grans 0.02 10^3/uL (0.0-0.06); Absolute Basophil Count 0.05 10^3/uL (0.0-0.2); Absolute Eosinophil Count 0.24 10^3/uL (0.0-0.7); Absolute Lymphocyte Count 2.08 10^3/uL (1.2-3.4); Absolute Monocyte Count 0.66 10^3/uL (0.1-0.8); Absolute Neutrophil Count 2.63 10^3/uL (1.2-6.7); Basophils % 0.9 %; Eosinophils % 4.2 %; HCT 36.4 % (40.0-50.0); HGB 12.1 g/dL (13.5-17.5); Immature Grans % 0.4 %; Lymphocytes % 36.6 %; MCH 30.9 pg (27.0-33.0); MCHC 33.2 % (32.0-36.0); MCV 93 fL (80-95); Monocytes % 11.6 %; Neutrophils % 46.3 %; RBC 3.91 10^6/uL (4.36-5.78); RDW 14.6 % (11.8-14.1); RDW-SD 50.2 fL; WBC 5.68 10^3/uL (4.4-10.8)
[2024-04-02 08:55] LABS: Anion Gap 7.9 mmol/L (3-11); BUN 16 mg/dL (7-18); CO2 26.1 mmol/L (21.0-32.0); CREATININE 0.9 mg/dL (0.70-1.30); Calcium 8.5 mg/dL (8.5-10.1); Chloride 106 mmol/L (98-107); Estimated GFR 87.42 (mL/min/1.73m2); Glucose 89 mg/dL (74-106); Potassium 3.7 mmol/L (3.5-5.1); Sodium 140 mmol/L (136-145)
[2024-04-02 09:14] LABS: Platelet Count 75 10^3/uL (130-400)
== END 2024-04-02 08:32 | disposition home or self-care (01) ==
LOC: NCHCN 08:31
PROVIDERS: PCP Nurse Practitioner Family; Visit Provider Family Medicine
DX: I10 Essential (primary) hypertension (principal)
CPT/HCPCS: 80048; 85025

== ENCOUNTER 2024-05-03 17:43 | Outpatient (REF) | payer MEDICARE, SELFPAY ==
[2024-05-03 11:36] LABS: Anion Gap 8.1 mmol/L (3-11); BUN 17 mg/dL (7-18); CO2 27.9 mmol/L (21.0-32.0); CREATININE 0.9 mg/dL (0.70-1.30); Calcium 8.4 mg/dL (8.5-10.1); Chloride 105 mmol/L (98-107); Estimated GFR 87.42 (mL/min/1.73m2); Glucose 95 mg/dL (74-106); Magnesium 1.8 mg/dL (1.8-2.4); Sodium 141 mmol/L (136-145)
== END 2024-05-03 17:44 | disposition home or self-care (01) ==
LOC: LBN 17:43
PROVIDERS: PCP Nurse Practitioner Family; Visit Provider Family Medicine
DX: R68.89 Other general symptoms and signs (principal)
CPT/HCPCS: 80048; 83735

== ENCOUNTER 2024-11-06 16:05 | Outpatient (REF) | payer MEDICARE, SELFPAY ==
[2024-11-06 18:03] LABS: Anion Gap 6.3 mmol/L (3-11); BUN 23 mg/dL (7-18); CO2 27.7 mmol/L (21.0-32.0); Calcium 8.4 mg/dL (8.5-10.1); Chloride 111 mmol/L (98-107); Estimated GFR 77.04 (mL/min/1.73m2); Glucose 101 mg/dL (74-106); Potassium 3.8 mmol/L (3.5-5.1); Sodium 145 mmol/L (136-145)
== END 2024-11-06 16:06 | disposition home or self-care (01) ==
LOC: LBN 16:05
PROVIDERS: PCP Nurse Practitioner Family; Visit Provider Family Medicine Geriatric Medicine
DX: G83.21 Monoplegia of upper limb affecting right dominant side (principal); D45 Polycythemia vera; G89.4 Chronic pain syndrome
CPT/HCPCS: 80048

== ENCOUNTER 2024-12-29 12:10 | Emergency (ER) | payer MEDICARE, SELFPAY ==
[2024-12-29 12:16] VITALS: BP 145/60; PULSE 85; RESP 18; TEMP 36.7; O2SAT 97
[2024-12-29 12:42] LABS: Abs Immature Grans 0.09 10^3/uL (0.0-0.06); Absolute Basophil Count 0.03 10^3/uL (0.0-0.2); Absolute Eosinophil Count 0.07 10^3/uL (0.0-0.7); Absolute Lymphocyte Count 1.45 10^3/uL (1.2-3.4); Absolute Monocyte Count 1.82 10^3/uL (0.1-0.8); Absolute Neutrophil Count 7.96 10^3/uL (1.2-6.7); Basophils % 0.3 %; Eosinophils % 0.6 %; HCT 38.5 % (40.0-50.0); HGB 12.9 g/dL (13.5-17.5); Immature Grans % 0.8 %; Lymphocytes % 12.7 %; MCH 30.1 pg (27.0-33.0); MCHC 33.5 % (32.0-36.0); MCV 90 fL (80-95); MPV 12.6 fL (8.0-11.0); Monocytes % 15.9 %; Neutrophils % 69.7 %; RBC 4.29 10^6/uL (4.36-5.78); RDW 14.6 % (11.8-14.1); RDW-SD 47.8 fL; WBC 11.42 10^3/uL (4.4-10.8)
[2024-12-29 12:45] VITALS: BP 154/77; PULSE 74; O2SAT 99
--- NOTE | 2024-12-29 12:45 | DI.RAD_ITS ---
Exam(s) XR HUMERUS RT EXAM: XR HUMERUS RT CLINICAL HISTORY: fall, pain. TECHNIQUE: 2D digital imaging was performed. COMPARISON: No exams were available for comparison FINDINGS: Two views. There is a mildly displaced fracture of the humeral head-neck. There is no obvious dislocation of t he glenohumeral joint. Generalized osteopenia is noted. IMPRESSION: Fracture of the humeral head-neck. DATA REPOSITORY: RADIATION DOSE DELIVERED:
--- NOTE | 2024-12-29 12:45 | DI.RAD_ITS ---
Exam(s) XR SHOULDER RT COMPLETE 2+V EXAM: XR SHOULDER RT COMPLETE 2+V CLINICAL HISTORY: fall, pain. TECHNIQUE: 2D digital imaging was performed. COMPARISON: No exams were available for comparison FINDINGS: 3 views There is an acute fracture of the humeral neck and some involvement of the head. There is no disloca tion of glenohumeral joint although there are degenerative changes this joint noted. Subacromial spa ce is not diminished. There appears to be a possible loose intra-articular body within the glenohume ral joint. The AC joint appears intact as does the ipsilateral clavicle. IMPRESSION: Mildly displaced humeral head-neck fracture. DATA REPOSITORY: RADIATION DOSE DELIVERED:
[2024-12-29 12:52] LABS: INR 1.3 (0.9-1.1); Prothrombin Time 12.6 sec (9.1-11.1)
[2024-12-29 12:59] LABS: Platelet Count 91 10^3/uL (130-400)
[2024-12-29 13:00] LABS: Diff Comment Agrees w/ Instrument; RBC Morphology Normal
[2024-12-29 13:01] LABS: ALT 27 U/L (16-63); AST 65 U/L (15-37); Albumin 2.6 g/dL (3.4-5.0); Alkaline Phosphatase 102 U/L (46-116); BUN 24 mg/dL (7-18); Bilirubin, Total 2.6 mg/dL (0.2-1.0); CREATININE 0.9 mg/dL (0.70-1.30); Chloride 104 mmol/L (98-107); Estimated GFR 87.42 (mL/min/1.73m2); Glucose 105 mg/dL (74-106); Magnesium 1.5 mg/dL (1.8-2.4); Potassium 3.8 mmol/L (3.5-5.1); Sodium 137 mmol/L (136-145); Total Protein 6.9 g/dL (6.4-8.2)
--- NOTE | 2024-12-29 13:28 | DI.CT_ITS ---
Exam(s) CT HEAD CERVICAL SPINE WO EXAM: CT HEAD CERVICAL SPINE WO CLINICAL HISTORY: fall, head strike, confusion. TECHNIQUE: Imaging Protocol: Axial computed tomography images with coronal and sagittal reformatted images were created and reviewed COMPARISON: CR CHEST 2 VIEWS PA,LAT from 04/13/2013 CR XR CHEST 1V IN DI DEPT from 03/17/2023 CR XR HUMERUS RT from 12/29/2024 FINDINGS: BRAIN: There are no skull fractures. Some mucosal thickening is noted in the left maxillary sinus and a les ser amount in the right maxillary sinus. Sphenoid sinuses are clear. Some mucosal thickening is not ed in the left frontal sinus and left ethmoidal air cells. There are no mastoid effusions. There is no evidence of intracranial hemorrhage. There is a significant area of abnormal hypodensity in the left basal ganglia and extending up into t he immediate periventricular white matter consistent with prior infarct. There are no previous for c omparison in our PACS system. There is no evidence of a hemorrhage. No obvious focal abnormalities evident in the cerebellar hemispheres nor within the paz and midbrain. Amount of involutional soto e is consistent with this patient's age. CERVICAL SPINE: No evidence of acute fracture. There is 4-5 mm degenerative anterolisthesis of C3 upon C4, this rela kisha to facet arthropathy at this level. There is advanced chronic disc space narrowing at C 4-5, C5-6, and C6-7 levels as well as C7-T1 level s. No listhesis at these levels. There is no significant facet joint malalignment. No significant osseous lesions evident. OTHER: Incidentally noted is partially included finding in the right upper lobe which is either is pl eural based scarring or neoplasm. Requires follow-up. IMPRESSION: 1. Prior infarct in the left basal ganglia with extension up to the high left periventricular white matter. Recommend MRI with diffusion imaging to determine if there is new ischemic event at this lev el. 2. Multilevel degenerative changes and chronic degenerative disc disease in the cervical spine, as d escribed above. No evidence of acute cervical fracture. 3. Incidentally noted is infiltrate in the right upper lobe which requires further study to rule out malignancy. Findings and recommendations discussed by myself with the ER physician 12/29/2024 at 1:45 p.m. RADIATION DOSE DELIVERED: 1,272.33mGy.cm Total DLP DATA REPOSITORY: All CT scans at this facility are submitted to the National Radiology Data Registry (NRDR) Dose Index Registry (DIR) with the [employer] (A[employer]). RADIATION OPTIMIZATION: All CT scans at this facility use at least one of these dose optimization te chniques: automated exposure control; mA and/or kV adjustment per patient size (includes targeted exa ms where dose is matched to clinical indication); or iterative reconstruction.
[2024-12-29] MEDS: MAGNESIUM SULFATE 1 GM/100 ML BAG IV_INF (13:47)
[2024-12-29 13:53] VITALS: BP 154/74; PULSE 74; O2SAT 96
--- NOTE | 2024-12-29 14:02 | TELEP.MEDR_ITS ---
Date of service: 12/29/24 Time of Service: 14:04 Telepharmacy Home Med Rec Allergies Allergies: No Known Allergies Allergy (Verified 07/14/23 10:01) Interview Person Interviewed: [facility] MAR Quality Quality of Interview/Accuracy of Medication List: Good Sources Sources used to compile medication list: MAR Changes made to Home Medication List: ADDITIONS: vit D 50,000 units levothyroxine 75mcg losartan 25mg sertraline 50mg DELETIONS: Eliquis vit D 2000 units esomeprazole ibuprofen levothyroxine 100mcg losartan 50mg CHANGES: None Additional Notes Additional Notes: Med list updated based on MAR sent from [facility]. Recommended Changes Attestation: The home medication list is now updated to the best of my knowledge and is ready to be reconciled by the provider. Please contact the TelePharmacy Medication Reconciliation Pharmacist at for any questions.
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
[2024-12-29 14:30] VITALS: BP 130/63; PULSE 68; RESP 20; O2SAT 96
[2024-12-29 14:56] VITALS: BP 127/57
== END 2024-12-29 15:16 | disposition home or self-care (01) ==
PROVIDERS: Emergency Provider Emergency Medicine; PCP Nurse Practitioner Family
DX: S42.211A Unspecified displaced fracture of surgical neck of right humerus, initial encounter for closed fracture (principal); J18.1 Lobar pneumonia, unspecified organism; W19.XXXA Unspecified fall, initial encounter
CPT/HCPCS: 99284 ×2; 36415; 80053; 96365; 70450; 72125; 73030; 73060; 83735; 85025; 85610; J3475